=== PATIENT | female | born 1990 | race Caucasian/White ===

== ENCOUNTER 2024-08-11 19:46 | Emergency (ER) | payer SELFPAY ==
--- NOTE | 2024-08-11 19:57 | ED.GENADULT ---
HPI - General Adult General Chief complaint: Psychiatric Symptoms <Avery Galvan MD - Last Filed: 08/12/24 05:50> Stated complaint: etoh, SI statement, invol <Avery Galvan MD - Last Filed: 08/12/24 05:50> Time Seen by Provider: 08/11/24 19:52 <Avery Galvan MD - Last Filed: 08/12/24 05:50> History of Present Illness HPI narrative: patient 33-year-old female who presents emergency department with chief complaint of mental health evaluation. Patient was pulled over by police for driving while intoxicated and during the booking phase the patient stated that she wanted to and reported that she wanted one of the officers shoot her in the face. the patient currently states that she has no complaints <Avery Galvan MD - Last Filed: 08/12/24 05:50> Related Data Home medications: Home Medications Medication Instructions Recorded Confirmed cariprazine 3 mg capsule (Vraylar) 3 mg PO DAILY 07/24/22 05/28/24 escitalopram oxalate 10 mg tablet 10 mg PO DAILY 07/24/22 05/28/24 lithium carbonate 450 mg 450 mg PO DAILY 07/24/22 05/28/24 tablet,extended release quetiapine 100 mg tablet 100 mg PO QHS 07/24/22 05/28/24 <Avery Galvan MD - Last Filed: 08/12/24 05:50> Allergies/adverse reactions: Allergies Allergy/AdvReac Type Severity Reaction Status Date / Time No Known Allergies Allergy Verified 08/11/24 19:47 <Avery Galvan MD - Last Filed: 08/12/24 05:50> Review of Systems Review of Systems: A 10 system review of systems was completed on the patient and is negative except for what is stated in the HPI. Nursing and ancillary documentation was reviewed. <Avery Galvan MD - Last Filed: 08/12/24 05:50> PMFSH Past Medical History Medical History: Medical History Depression with anxiety Encounter for general adult medical examination without abnormal findings <Avery Galvan MD - Last Filed: 08/12/24 05:50> Family History Family History: Family History Father Alcoholism Hypertension Depression Mother Hypertension Depression <Avery Galvan MD - Last Filed: 08/12/24 05:50> Social History Social History: Social History Social History: Single Smoking status: Never smoker Second hand tobacco smoke exposure: No Alcohol intake: current Drinks per week: 6 Substance use: never Substance use type: prescription drug Do You Feel Safe in your Home?: Yes Lack of Transportation: No Lack of Food: Never True Current Housing: I Have Housing Concerned About Future Housing: No Difficulty Paying Gas/Electric Bills: No Difficulty Paying for Meds: No Currently Unemployed: No Education: Don't Know Difficulty w/ Childcare or Family Care: No Living arrangements: with family Occupation/Education: occupation Gender identity (if verbalized by the patient): Female Sexual Orientation (if Verbalized by the Patient): Straight or Heterosexual <Avery Galvan MD - Last Filed: 08/12/24 05:50> Exam Narrative: GENERAL: Well-appearing, well-nourished, and in no acute distress. HEAD: Normocephalic, atraumatic. EYES: PERRLA and EOMI. ENT: Nares clear, no rhinorrhea or epistaxis. Mucous membranes moist. NECK: Supple. CHEST: Clear to auscultation. No respiratory distress. HEART: Regular rate and rhythm. No murmur heard. Normal peripheral pulses. ABDOMEN: Soft, nontender, nondistended, normal active bowel sounds. EXTREMITIES: Normal range of motion. No edema. SKIN: Warm, dry, no rash. NEURO: No focal deficits. Alert and oriented x3. PSYCH: Normal mood and affect. <Avery Galvan MD - Last Filed: 08/12/24 05:50> Course Course Emergency Course: ABNER: patient signed out pending crisis evaluation. Now the patient is sober she no longer wants to kill herself. Patient discharged with resources and return precautions. <Randolph Fofana MD - Last Filed: 08/12/24 07:55> Vital Signs Vital signs: Vital Signs Temperature 98 F 08/11/24 20:15 Pulse Rate 108 H 08/11/24 20:15 Respiratory Rate 15 08/11/24 20:15 Blood Pressure 127/83 08/11/24 20:15 Pulse Oximetry 98 08/11/24 20:15 Temperature 98 F 08/11/24 20:15 Pulse Rate 108 H 08/11/24 20:15 Respiratory Rate 15 08/11/24 20:15 Blood Pressure 127/83 08/11/24 20:15 Pulse Oximetry 98 08/11/24 20:15 <Avery Galvan MD - Last Filed: 08/12/24 05:50> Vital Signs Temperature 98 F 08/11/24 20:15 Pulse Rate 108 H 08/11/24 20:15 Respiratory Rate 15 08/11/24 20:15 Blood Pressure 127/83 08/11/24 20:15 Pulse Oximetry 98 08/11/24 20:15 Temperature 98 F 08/11/24 20:15 Pulse Rate 108 H 08/11/24 20:15 Respiratory Rate 15 08/11/24 20:15 Blood Pressure 127/83 08/11/24 20:15 Pulse Oximetry 98 08/11/24 20:15 <Randolph Fofana MD - Last Filed: 08/12/24 07:55> Medical Decision Making MDM Narrative Medical decision making narrative: Differential diagnosis includes substance induced mood disorder alcohol intoxication, suicidal ideation Initial blood alcohol level was elevated at 294 patient has been allowed to metabolize the alcohol and now the blood alcohol level is below 80. The patient's lithium level was slightly elevated the patient's lithium was held today and should be held for several days until a repeat lithium level The patient is medically clear for psychiatric evaluation referral transferred admission <Avery Galvan MD - Last Filed: 08/12/24 05:50> Vital Signs Vital Signs: Vital Signs Temperature 98 F 08/11/24 20:15 Pulse Rate 108 H 08/11/24 20:15 Respiratory Rate 15 08/11/24 20:15 Blood Pressure 127/83 08/11/24 20:15 Pulse Oximetry 98 08/11/24 20:15 Temperature 98 F 08/11/24 20:15 Pulse Rate 108 H 08/11/24 20:15 Respiratory Rate 15 08/11/24 20:15 Blood Pressure 127/83 08/11/24 20:15 Pulse Oximetry 98 08/11/24 20:15 <Avery Galvan MD - Last Filed: 08/12/24 05:50> Vital Signs Temperature 98 F 08/11/24 20:15 Pulse Rate 108 H 08/11/24 20:15 Respiratory Rate 15 08/11/24 20:15 Blood Pressure 127/83 08/11/24 20:15 Pulse Oximetry 98 08/11/24 20:15 Temperature 98 F 08/11/24 20:15 Pulse Rate 108 H 08/11/24 20:15 Respiratory Rate 15 08/11/24 20:15 Blood Pressure 127/83 08/11/24 20:15 Pulse Oximetry 98 08/11/24 20:15 <Randolph Fofana MD - Last Filed: 08/12/24 07:55> Lab Data Result diagrams: 08/11/24 20:10 08/11/24 20:10 <Avery Galvan MD - Last Filed: 08/12/24 05:50> Labs: Lab Results 08/11/24 08/11/24 08/11/24 Range/Units 20:10 20:42 21:01 WBC 7.6 (4.5-10.0) K/mm3 RBC 4.03 L (4.2-5.4) M/mm3 Hgb 13.2 (12.0-15.0) g/dL Hct 38.3 (37.0-47.0) % MCV 95.0 (80-100) fl MCH 32.8 (26-34) pg MCHC 34.5 (32-36) g/dl RDW 11.5 (11.5-14.5) % Plt Count 278 (150-375) k/mm3 MPV 10.3 (7.4-10.4) fl Immature Gran % (Auto) 0.3 (0-0.5) % Neut % (Auto) 51.6 (45.5-73.1) % Lymph % (Auto) 39.6 (18.3-44.2) % [place] % (Auto) 6.6 (2.6-8.5) % Eos % (Auto) 1.4 (0-4.4) % Baso % (Auto) 0.5 (0.2-1.2) % Lymph # (Auto) 3.02 (0.9-3.2) K/mm3 [place] # (Auto) 0.5 (0.1-0.6) K/mm3 Eos # (Auto) 0.1 (0-0.3) K/mm3 Baso # (Auto) 0.0 (0.0-0.1) K/mm3 Abs Immat Gran (auto) 0.02 (0.00-0.031) K/mm3 Absolute Neuts (auto) 3.9 (1.3-6.7) K/mm3 Absolute Nucleated RBC 0.000 (0.0-0.012) K/mm3 Nucleated RBC % 0.0 (0.0-0.2) % Sodium 138 (137-145) mmol/L Potassium 3.8 (3.4-5.0) mmol/L Chloride 105 (98-107) mmol/L Carbon Dioxide 23 (22-30) mmol/L Anion Gap 10 (4-12) mmol/L BUN 12 (7-17) mg/dL Creatinine 0.80 (0.7-1.0) mg/dL Estim Creat Clear Calc 101 ml/min Estimated GFR > 60 (59 - ) Glucose 108 (65-110) mg/dL Calcium 8.7 (8.4-10.2) mg/dL Total Bilirubin 0.3 (0.2-1.3) mg/dL AST 34 (14-36) U/L ALT 17 (6-35) U/L Alkaline Phosphatase 84 (38-126) U/L Total Protein 8.0 (6.3-8.2) g/dL Albumin 4.6 (3.5-5.1) g/dL TSH (Reflex) 2.600 (0.465-4.68) uIU/mL Urine Color Yellow (Yellow) Urine Appearance Cloudy H (Clear) Urine pH 6.5 (5.0-9.0) Ur Specific [place] 1.003 (1.001-1.035) Urine Protein Negative (Negative) mg/dL Urine Glucose (UA) Negative (Negative) mg/dL Urine Ketones Negative (Negative) mg/dL Ur Blood (Man) Negative (Negative) Urine Nitrate Negative (Negative) Urine Bilirubin Negative (Negative) Urine Urobilinogen 0.2 (<2.0) mg/dL Add Ur Microanalysis Reviewed Leukocyte Esterase Rfl Negative (Negative) TASNEEM/UL Urine RBC 0-2 (0-2) /hpf Urine WBC 0-5 (0-3) /hpf Ur Squamous Epith Cells None seen (Few) /hpf Urine Bacteria None seen /hpf Urine Casts 0-2 POC Urine HCG, Qual Negative (Negative) Urine Opiates Screen Negative (Negative) Urine Methadone Screen Negative (Negative) Ur Barbiturates Screen Negative (Negative) Ur Phencyclidine Scrn Negative (Negative) Ur Amphetamine Screen Negative (Negative) U Benzodiazepines Scrn Negative (Negative) [place] 1.5 H* (0.6-1.2) mmol/L Urine Cocaine Screen Negative (Negative) U Cannabinoids Screen Negative (Negative) Ethyl Alcohol 294 (<10) mg/dL Influenza A (RT-PCR) Negative (Negative) Influenza B (RT-PCR) Negative (Negative) RSV (RT-PCR) Negative (Negative) SARS-CoV-2 RNA (RT-PCR) Negative (Negative) 08/12/24 Range/Units 05:12 WBC (4.5-10.0) K/mm3 RBC (4.2-5.4) M/mm3 Hgb (12.0-15.0) g/dL Hct (37.0-47.0) % MCV (80-100) fl MCH (26-34) pg MCHC (32-36) g/dl RDW (11.5-14.5) % Plt Count (150-375) k/mm3 MPV (7.4-10.4) fl Immature Gran % (Auto) (0-0.5) % Neut % (Auto) (45.5-73.1) % Lymph % (Auto) (18.3-44.2) % [place] % (Auto) (2.6-8.5) % Eos % (Auto) (0-4.4) % Baso % (Auto) (0.2-1.2) % Lymph # (Auto) (0.9-3.2) K/mm3 [place] # (Auto) (0.1-0.6) K/mm3 Eos # (Auto) (0-0.3) K/mm3 Baso # (Auto) (0.0-0.1) K/mm3 Abs Immat Gran (auto) (0.00-0.031) K/mm3 Absolute Neuts (auto) (1.3-6.7) K/mm3 Absolute Nucleated RBC (0.0-0.012) K/mm3 Nucleated RBC % (0.0-0.2) % Sodium (137-145) mmol/L Potassium (3.4-5.0) mmol/L Chloride (98-107) mmol/L Carbon Dioxide (22-30) mmol/L Anion Gap (4-12) mmol/L BUN (7-17) mg/dL Creatinine (0.7-1.0) mg/dL Estim Creat Clear Calc ml/min Estimated GFR (59 - ) Glucose (65-110) mg/dL Calcium (8.4-10.2) mg/dL Total Bilirubin (0.2-1.3) mg/dL AST (14-36) U/L ALT (6-35) U/L Alkaline Phosphatase (38-126) U/L Total Protein (6.3-8.2) g/dL Albumin (3.5-5.1) g/dL TSH (Reflex) (0.465-4.68) uIU/mL Urine Color (Yellow) Urine Appearance (Clear) Urine pH (5.0-9.0) Ur Specific [place] (1.001-1.035) Urine Protein (Negative) mg/dL Urine Glucose (UA) (Negative) mg/dL Urine Ketones (Negative) mg/dL Ur Blood (Man) (Negative) Urine Nitrate (Negative) Urine Bilirubin (Negative) Urine Urobilinogen (<2.0) mg/dL Add Ur Microanalysis Leukocyte Esterase Rfl (Negative) TASNEEM/UL Urine RBC (0-2) /hpf Urine WBC (0-3) /hpf Ur Squamous Epith Cells (Few) /hpf Urine Bacteria /hpf Urine Casts POC Urine HCG, Qual (Negative) Urine Opiates Screen (Negative) Urine Methadone Screen (Negative) Ur Barbiturates Screen (Negative) Ur Phencyclidine Scrn (Negative) Ur Amphetamine Screen (Negative) U Benzodiazepines Scrn (Negative) [place] (0.6-1.2) mmol/L Urine Cocaine Screen (Negative) U Cannabinoids Screen (Negative) Ethyl Alcohol 75 (<10) mg/dL Influenza A (RT-PCR) (Negative) Influenza B (RT-PCR) (Negative) RSV (RT-PCR) (Negative) SARS-CoV-2 RNA (RT-PCR) (Negative) <Avery Galvan MD - Last Filed: 08/12/24 05:50> Lab Results 08/11/24 08/11/24 08/11/24 Range/Units 20:10 20:42 21:01 WBC 7.6 (4.5-10.0) K/mm3 RBC 4.03 L (4.2-5.4) M/mm3 Hgb 13.2 (12.0-15.0) g/dL Hct 38.3 (37.0-47.0) % MCV 95.0 (80-100) fl MCH 32.8 (26-34) pg MCHC 34.5 (32-36) g/dl RDW 11.5 (11.5-14.5) % Plt Count 278 (150-375) k/mm3 MPV 10.3 (7.4-10.4) fl Immature Gran % (Auto) 0.3 (0-0.5) % Neut % (Auto) 51.6 (45.5-73.1) % Lymph % (Auto) 39.6 (18.3-44.2) % [place] % (Auto) 6.6 (2.6-8.5) % Eos % (Auto) 1.4 (0-4.4) % Baso % (Auto) 0.5 (0.2-1.2) % Lymph # (Auto) 3.02 (0.9-3.2) K/mm3 [place] # (Auto) 0.5 (0.1-0.6) K/mm3 Eos # (Auto) 0.1 (0-0.3) K/mm3 Baso # (Auto) 0.0 (0.0-0.1) K/mm3 Abs Immat Gran (auto) 0.02 (0.00-0.031) K/mm3 Absolute Neuts (auto) 3.9 (1.3-6.7) K/mm3 Absolute Nucleated RBC 0.000 (0.0-0.012) K/mm3 Nucleated RBC % 0.0 (0.0-0.2) % Sodium 138 (137-145) mmol/L Potassium 3.8 (3.4-5.0) mmol/L Chloride 105 (98-107) mmol/L Carbon Dioxide 23 (22-30) mmol/L Anion Gap 10 (4-12) mmol/L BUN 12 (7-17) mg/dL Creatinine 0.80 (0.7-1.0) mg/dL Estim Creat Clear Calc 101 ml/min Estimated GFR > 60 (59 - ) Glucose 108 (65-110) mg/dL Calcium 8.7 (8.4-10.2) mg/dL Total Bilirubin 0.3 (0.2-1.3) mg/dL AST 34 (14-36) U/L ALT 17 (6-35) U/L Alkaline Phosphatase 84 (38-126) U/L Total Protein 8.0 (6.3-8.2) g/dL Albumin 4.6 (3.5-5.1) g/dL TSH (Reflex) 2.600 (0.465-4.68) uIU/mL Urine Color Yellow (Yellow) Urine Appearance Cloudy H (Clear) Urine pH 6.5 (5.0-9.0) Ur Specific [place] 1.003 (1.001-1.035) Urine Protein Negative (Negative) mg/dL Urine Glucose (UA) Negative (Negative) mg/dL Urine Ketones Negative (Negative) mg/dL Ur Blood (Man) Negative (Negative) Urine Nitrate Negative (Negative) Urine Bilirubin Negative (Negative) Urine Urobilinogen 0.2 (<2.0) mg/dL Add Ur Microanalysis Reviewed Leukocyte Esterase Rfl Negative (Negative) TASNEEM/UL Urine RBC 0-2 (0-2) /hpf Urine WBC 0-5 (0-3) /hpf Ur Squamous Epith Cells None seen (Few) /hpf Urine Bacteria None seen /hpf Urine Casts 0-2 POC Urine HCG, Qual Negative (Negative) Urine Opiates Screen Negative (Negative) Urine Methadone Screen Negative (Negative) Ur Barbiturates Screen Negative (Negative) Ur Phencyclidine Scrn Negative (Negative) Ur Amphetamine Screen Negative (Negative) U Benzodiazepines Scrn Negative (Negative) [place] 1.5 H* (0.6-1.2) mmol/L Urine Cocaine Screen Negative (Negative) U Cannabinoids Screen Negative (Negative) Ethyl Alcohol 294 (<10) mg/dL Influenza A (RT-PCR) Negative (Negative) Influenza B (RT-PCR) Negative (Negative) RSV (RT-PCR) Negative (Negative) SARS-CoV-2 RNA (RT-PCR) Negative (Negative) 08/12/24 Range/Units 05:12 WBC (4.5-10.0) K/mm3 RBC (4.2-5.4) M/mm3 Hgb (12.0-15.0) g/dL Hct (37.0-47.0) % MCV (80-100) fl MCH (26-34) pg MCHC (32-36) g/dl RDW (11.5-14.5) % Plt Count (150-375) k/mm3 MPV (7.4-10.4) fl Immature Gran % (Auto) (0-0.5) % Neut % (Auto) (45.5-73.1) % Lymph % (Auto) (18.3-44.2) % [place] % (Auto) (2.6-8.5) % Eos % (Auto) (0-4.4) % Baso % (Auto) (0.2-1.2) % Lymph # (Auto) (0.9-3.2) K/mm3 [place] # (Auto) (0.1-0.6) K/mm3 Eos # (Auto) (0-0.3) K/mm3 Baso # (Auto) (0.0-0.1) K/mm3 Abs Immat Gran (auto) (0.00-0.031) K/mm3 Absolute Neuts (auto) (1.3-6.7) K/mm3 Absolute Nucleated RBC (0.0-0.012) K/mm3 Nucleated RBC % (0.0-0.2) % Sodium (137-145) mmol/L Potassium (3.4-5.0) mmol/L Chloride (98-107) mmol/L Carbon Dioxide (22-30) mmol/L Anion Gap (4-12) mmol/L BUN (7-17) mg/dL Creatinine (0.7-1.0) mg/dL Estim Creat Clear Calc ml/min Estimated GFR (59 - ) Glucose (65-110) mg/dL Calcium (8.4-10.2) mg/dL Total Bilirubin (0.2-1.3) mg/dL AST (14-36) U/L ALT (6-35) U/L Alkaline Phosphatase (38-126) U/L Total Protein (6.3-8.2) g/dL Albumin (3.5-5.1) g/dL TSH (Reflex) (0.465-4.68) uIU/mL Urine Color (Yellow) Urine Appearance (Clear) Urine pH (5.0-9.0) Ur Specific [place] (1.001-1.035) Urine Protein (Negative) mg/dL Urine Glucose (UA) (Negative) mg/dL Urine Ketones (Negative) mg/dL Ur Blood (Man) (Negative) Urine Nitrate (Negative) Urine Bilirubin (Negative) Urine Urobilinogen (<2.0) mg/dL Add Ur Microanalysis Leukocyte Esterase Rfl (Negative) TASNEEM/UL Urine RBC (0-2) /hpf Urine WBC (0-3) /hpf Ur Squamous Epith Cells (Few) /hpf Urine Bacteria /hpf Urine Casts POC Urine HCG, Qual (Negative) Urine Opiates Screen (Negative) Urine Methadone Screen (Negative) Ur Barbiturates Screen (Negative) Ur Phencyclidine Scrn (Negative) Ur Amphetamine Screen (Negative) U Benzodiazepines Scrn (Negative) [place] (0.6-1.2) mmol/L Urine Cocaine Screen (Negative) U Cannabinoids Screen (Negative) Ethyl Alcohol 75 (<10) mg/dL Influenza A (RT-PCR) (Negative) Influenza B (RT-PCR) (Negative) RSV (RT-PCR) (Negative) SARS-CoV-2 RNA (RT-PCR) (Negative) <Randolph Ffoana MD - Last Filed: 08/12/24 07:55> Restraint Face to Face Eval ED Evaluation Findings Pt's immediate situation:: Patient intoxicated uncooperative attempting to run out of the ER <Avery Galvan MD - Last Filed: 08/12/24 05:50> Pt's reaction to intervention:: Have attempted to use security to facilitate patient's stay in the room patient noncompliant <Avery Galvan MD - Last Filed: 08/12/24 05:50> Pt's med/behavioral condition:: Patient expressing suicidal ideation while intoxicated <Avery Galvan MD - Last Filed: 08/12/24 05:50> Discharge Plan Discharge Clinical Impression: Suicidal ideation, Elevated lithium level, Alcohol intoxication <Avery Galvan MD - Last Filed: 08/12/24 05:50> Patient Disposition: Home, Self-Care <Avery Galvan MD - Last Filed: 08/12/24 05:50> Condition: Stable <Avery Galvan MD - Last Filed: 08/12/24 05:50> Instructions: Antibiotic Form <Avery Galvan MD - Last Filed: 08/12/24 05:50> Additional Instructions: Please follow-up the resources provided by the crisis team. please follow-up your primary care physician for management of your lithium which was slightly elevated today. Return to the ED if you develop thoughts harming self or others or you develop other symptoms that he would like to be evaluated. <Avery Galvan MD - Last Filed: 08/12/24 05:50> Prescriptions: No Action lithium carbonate 450 mg tablet extended release 450 mg PO DAILY Vraylar 3 mg capsule 3 mg PO DAILY quetiapine 100 mg tablet 100 mg PO QHS escitalopram oxalate 10 mg tablet 10 mg PO DAILY levonorgestrel-ethinyl estrad [Altavera (28)] 0.15-0.03 mg tablet See Rx Instructions .ROUTE .COMPLEX Qty: 84 0RF Dose Instruction: TAKE 1 TABLET BY MOUTH DAILY, FOLLOWING THE ORDER ON BLISTER CARD Rx Instructions: TAKE 1 TABLET BY MOUTH DAILY, FOLLOWING THE ORDER ON BLISTER CARD <Avery Galvan MD - Last Filed: 08/12/24 05:50> Follow-up/Referrals: Nataly Whalen MD [Primary Care Provider] - <Avery Galvan MD - Last Filed: 08/12/24 05:50>
[2024-08-11 20:15] VITALS: BP 127/83; PULSE 108; RESP 15; TEMP 36.6; O2SAT 98
--- NOTE | 2024-08-11 20:16 | ECG_ITS ---
Test Date: 2024-08-11 20:13:08 Measurements Intervals [place] Rate: 92 P: 61 [place]: 159 QRS: 3 QRSD: 114 T: 31 QT: 375 QTc: 465 Interpretive Statements SINUS RHYTHM POSSIBLE LEFT ATRIAL ENLARGEMENT INCOMPLETE RIGHT BUNDLE BRANCH BLOCK BORDERLINE T WAVE ABNORMALITY- ANTERIOR LEADS BASELINE ARTIFACT- I, II, III, AVR, AVL, AVF, V2 BORDERLINE ECG No previous ECG available for comparison Electronically Signed On 08-12-2024 06:16:33 [facility] [employer] by Randall Grayson D.O.
[2024-08-11 20:26] LABS: Basophils Percent Auto 0.5 % (0.2-1.2); Eosinophils Absolute Auto 0.1 K/mm3 (0-0.3); Eosinophils Percent Auto 1.4 % (0-4.4); Hematocrit 38.3 % (37.0-47.0); Hemoglobin 13.2 g/dL (12.0-15.0); Immature Granulocyte Absolute 0.02 K/mm3 (0.00-0.031); Immature Granulocyte Percent A 0.3 % (0-0.5); Lymphocytes Absolute Auto 3.02 K/mm3 (0.9-3.2); Lymphocytes Percent Auto 39.6 % (18.3-44.2); Mean Corpuscular HGB Conc 34.5 g/dl (32-36); Mean Corpuscular Hemoglobin 32.8 pg (26-34); Mean Platelet Volume 10.3 fl (7.4-10.4); Monocytes Absolute Auto 0.5 K/mm3 (0.1-0.6); Monocytes Percent Auto 6.6 % (2.6-8.5); Neutrophils Absolute Auto 3.9 K/mm3 (1.3-6.7); Neutrophils Percent Auto 51.6 % (45.5-73.1); Platelet Count Result 278 k/mm3 (150-375); Red Blood Count 4.03 M/mm3 (4.2-5.4); Red Cell Distribution Width 11.5 % (11.5-14.5); White Blood Count 7.6 K/mm3 (4.5-10.0)
[2024-08-11 20:37] LABS: Alanine Aminotransferase 17 U/L (6-35); Albumin Level 4.6 g/dL (3.5-5.1); Alkaline Phosphatase 84 U/L (38-126); Anion Gap 10 mmol/L (4-12); Aspartate Amino Transferase 34 U/L (14-36); Bilirubin,Total 0.3 mg/dL (0.2-1.3); Blood Urea Nitrogen 12 mg/dL (7-17); Calcium 8.7 mg/dL (8.4-10.2); Carbon Dioxide 23 mmol/L (22-30); Chloride 105 mmol/L (98-107); Estimated CRCL calculation 101 ml/min; Estimated Glomerular Filt Rate > 60; Glucose 108 mg/dL (65-110); Potassium 3.8 mmol/L (3.4-5.0); Sodium 138 mmol/L (137-145)
[2024-08-11 21:00] LABS: Add Urine Microscopic? YES; Appearance Urine Cloudy (Clear); Bacteria Urine None Seen /hpf; Bilirubin Urine Negative (Negative); Blood Urine Negative (Negative); Color Urine Yellow (Yellow); Glucose Urine UA Negative (Negative); Ketones Urine Negative (Negative); Leukocyte Esterase Ur Negative LEU/UL (Negative); Need Manual Microscopic Reviewed; Nitrate Urine Negative (Negative); Non Pathogenic Casts 0-2; Protein Urine Negative (Negative); RBC Urine 0-2 /hpf (0-2); Specific Grav Ur 1.003 (1.001-1.035); Squamous Epithelial Cell Urine None Seen /hpf (Few); Urobilinogen Urine 0.2 mg/dL (<2.0); WBC Urine 0-5 /hpf (0-3); pH Urine 6.5 (5.0-9.0)
[2024-08-11 21:03] LABS: BEDSIDEPREGUCG Negative (Negative)
[2024-08-11 21:19] LABS: Influenza A QL RT-PCR Negative (Negative); Influenza B QL RT-PCR Negative (Negative); RSV RNA, RT-PCR Negative (Negative); SARS-CoV-2 RNA PCR Negative (Negative)
[2024-08-11 21:21] LABS: Amphetamine Screen Urine Negative (Negative); Barbiturate Screen Urine Negative (Negative); Benzodiazepines Screen Urine Negative (Negative); Cannabinoid Screen Urine Negative (Negative); Cocaine Screen Urine Negative (Negative); Methadone Screen Urine Negative (Negative); Opiate Screen Urine Negative (Negative); Phencyclidine Screen Urine Negative (Negative)
[2024-08-11 21:36] LABS: Ethanol 294 mg/dL (<10)
[2024-08-11 22:37] LABS: Lithium 1.5 mmol/L (0.6-1.2)
--- NOTE | 2024-08-11 23:06 | PC.NURSE ---
Pt is in room sleeping. Quetiapine is being held at this time per Dr. Galvan.
[2024-08-12] MEDS: QUEtiapine FUMARATE 100 MG TABLET 300 MG PO (01:18)
[2024-08-12 05:32] LABS: Ethanol 75 mg/dL (<10)
--- NOTE | 2024-08-12 05:53 | PC.NURSE ---
2100 Pt tried to run out EMS bay but was caught and directed back to room 15 by security. This RN spoke with pt and she agreed to not try to escape.
[2024-08-12 09:19] VITALS: BP 130/84; PULSE 79; RESP 18; TEMP 36.9; O2SAT 97
== END 2024-08-12 09:20 | disposition home or self-care (01) ==
PROVIDERS: Emergency Provider Emergency Medicine; PCP Family Medicine
DX: R45.851 Suicidal ideations (principal); F10.129 Alcohol abuse with intoxication, unspecified; Y90.8 Blood alcohol level of 240 mg/100 ml or more; R78.89 Finding of other specified substances, not normally found in blood; Z11.52 Encounter for screening for COVID-19; F41.8 Other specified anxiety disorders; Z79.899 Other long term (current) drug therapy
CPT/HCPCS: 36415; 80053; 80178; 80307; 81001; 81025; 82077; 84443; 85025; 87637; 93005; 99284; A9270

== ENCOUNTER 2024-09-27 12:54 | Emergency (ER) | payer OTHER, SELFPAY ==
--- NOTE | ~2024-09-27 | XR_ITS ---
CHEST RADIOGRAPH, PA AND LATERAL CLINICAL HISTORY: COUGH, N/V/D SINCE 09-22-24 . COMPARISON: None available TECHNIQUE: PA and lateral views of the chest. FINDINGS The cardiomediastinal silhouette is unremarkable. Right lower lobe infiltrate. The remainder of the lungs are clear. IMPRESSION: Right lower lobe infiltrate Reviewed, dictated and finalized at location A. INGS TIGHTENER IMPRESSION: Right lower lobe infiltrate
[2024-09-27 13:03] VITALS: BP 117/78; PULSE 120; RESP 18; TEMP 37.7; O2SAT 95
--- NOTE | 2024-09-27 15:01 | ED.URI ---
HPI - URI/Sore Throat General Chief Complaint: Upper Respiratory Infection Stated Complaint: cough, nausea, body aches, 92% on RA Time Seen by Provider: 09/27/24 14:52 Source: patient Mode of arrival: ambulatory Limitations: no limitations History of Present Illness HPI Narrative: Patient presents with complaint cough, nausea, vomiting, and diarrhea as well as body aches. She states her last oral intake was a few sips of broth yesterday. She has no underlying respiratory conditions. Her emesis has been nonbloody has as her diarrhea. She has a productive cough. She states that she developed a slight sore throat but only after coughing. She has been taking ibuprofen for headache as well as NyQuil and DayQuil. Patient's symptoms started on 09/22/2024. Patient was seen in urgent care and states she was prescribed medications that she started taking on 09/24/2024. She notes that this included benzonatate, albuterol inhaler, and she believes another medication that might have started with a DD although she is not certain. She believes that 1 of these medications might of been an antibiotic but she does not know and does not have a list. She is starting to feel short of breath. Her last menstrual period is unknown as she is on oral contraception. She was tested for COVID and flu when she 1st presented to urgent care and was negative at that time. She had a possible exposure to COVID in the lot of her work colleagues had this a few weeks ago. Patient presented to urgent care again today and she received a nebulized treatment and was advised to come to the emergency department because she was saturating 92% on room air. . Related Data Home Medications ?Medication ?Instructions ?Recorded ?Confirmed ?Last Taken ?Type cariprazine 3 mg capsule (Vraylar) 3 mg PO DAILY 07/24/22 05/28/24 Unknown History escitalopram oxalate 10 mg tablet 10 mg PO DAILY 07/24/22 05/28/24 Unknown History lithium carbonate 450 mg 450 mg PO DAILY 07/24/22 05/28/24 Unknown History tablet,extended release quetiapine 100 mg tablet 100 mg PO QHS 07/24/22 05/28/24 Unknown History Allergies Allergy/AdvReac Type Severity Reaction Status Date / Time No Known Allergies Allergy Verified 09/27/24 14:57 [facility] Past Medical History Medical History Depression with anxiety Family History Family History Father Alcoholism Hypertension Depression Mother Hypertension Depression Social History Social History Social History: Single Smoking status: Never smoker Second hand tobacco smoke exposure: No Alcohol intake: current Drinks per week: 6 Substance use: never Substance use type: prescription drug Do You Feel Safe in your Home?: Yes Lack of Transportation: No Lack of Food: Never True Current Housing: I Have Housing Concerned About Future Housing: No Difficulty Paying Gas/Electric Bills: No Difficulty Paying for Meds: No Currently Unemployed: No Education: Don't Know Difficulty w/ Childcare or Family Care: No Living arrangements: with family Occupation/Education: occupation Gender identity (if verbalized by the patient): Female Sexual Orientation (if Verbalized by the Patient): Straight or Heterosexual Exam Narrative: GENERAL: well-nourished, appears acutely ill though nontoxic HEAD: Normocephalic, atraumatic. EYES: Non injected, non icteric ENT: Nares clear, no rhinorrhea or epistaxis. NECK: Supple. CHEST: Speaking in full sentences. No respiratory distress. Lungs clear to auscultation without wheezes, crackles, or stridor. HEART: Tachycardic rate and rhythm. . ABDOMEN: Soft, nondistended. EXTREMITIES: Normal range of motion. No lower extremity edema. SKIN: Warm, dry, no rash. NEURO: No focal deficits. Alert and oriented x3. PSYCH: Normal mood and affect. Course Vital Signs Vital signs: Vital Signs Temperature 100 F H 09/27/24 13:03 Pulse Rate 120 H 09/27/24 13:03 Respiratory Rate 18 09/27/24 13:03 Blood Pressure 117/78 09/27/24 13:03 Pulse Oximetry 95 09/27/24 13:03 Oxygen Delivery Room Air 09/27/24 13:03 Temperature 98.2 F 09/27/24 18:17 Pulse Rate 78 09/27/24 17:05 Respiratory Rate 19 09/27/24 17:05 Blood Pressure 119/78 09/27/24 17:05 Pulse Oximetry 94 09/27/24 17:05 Oxygen Delivery Room Air 09/27/24 13:03 MDM - URI/Sore Throat MDM Narrative Medical decision making narrative: Patient presents with multiple complaints including cough, nausea, vomiting, diarrhea, myalgias and headache. In the emergency department she is borderline febrile and tachycardic. 0 points Centor Score so will not test for Strep. Will give acetaminophen given temperature and a L of IV fluids given tachycardia. Will give 1 time dose of intramuscular Solu-Medrol. Patient states she thinks she was put on antibiotics although does not know the name. She states that she is taken benzonatate as well as an albuterol inhaler. Believes there might have been another drug that started with the letter D. this is hard to know whether she was prescribed dextromethorphan versus doxycycline or an alternative medication entirely. Her pharmacy is the [facility] in [facility] on [facility] which is closed at this time and unable to see any recent fills on online home meds tab. [facility] in [place] is called: They Confirm patient was prescribed benzonatate and albuterol inhaler as well as cefdinir antibiotic was prescribed. Patient has evidence of a pneumonia on chest x-ray. CURB-65 score Confusion (No 0, Yes +1): 0 BUN >19mg/dl (No 0, Yes +1) 0 RR >/= 30 (No 0, Yes +1) 0 SBP <90mmHg or DBP </=60mmHg (No 0, Yes +1): 0 Age >/=65 (No 0, Yes +1): 0 Result = 0 points, low risk group. Suitable for outpatient treatment. DRIP Score - predicts risk for CAP d/t drug-resistant pathogens Antibiotic use within 60 days (No 0, Yes +2): 2 intermediate school teacher care resident (No 0, Yes +2): 0 Tube feeding (No 0, Yes +2): 0 Prior drug-resistant pneumonia Dx within 1 year (No 0, Yes +2): 0 Hospitalization within 60 days (No 0, Yes +1): 0 Chronic pulmonary disease (No 0, Yes +1): 0 Poor functional status (No 0, Yes +1): 0 H2 edmond or PPI within 14 days (No 0, Yes +1): 0 Active wound care at time of admission (No 0, Yes +1):0 MRSA colonization within 1 year (No 0, Yes +1):0 Total:2 Outpatient score <4 with recent antibiotic exposure, will prescribe beta-lactam (high-dose extended-release amox/clavulante). Patient given 1st dose in the emergency department. The rest of the course as prescribed along with the ondansetron/Zofran. Normocytic anemia and thrombocytopenia (but neither marked enough to suggest TTP). test negative. She is hyponatremic. Legionella antigen ordered but will not result same day and lower suspicion for this given not having bradycardia/relative bradycardia. She is also hypokalemic. Magnesium ordered and repletion of potassium was ordered. Magnesium normal. Patient's temperature has improved as has the heart rate and she has successfully PO challenged. Advised follow-up with primary care physician. Provided name/contact information for referral if she requires 1. Given ED return precautions. Differential Diagnosis Differential diagnosis: Likely upper respiratory infection, viral infection, bronchitis, influenza, pharyngitis and other (Pneumonia) Lab Data Attestation: I reviewed the patient's lab results. 09/27/24 16:35 09/27/24 16:35 Labs: Lab Results 09/27/24 09/27/24 09/27/24 Range/Units 15:23 16:24 16:35 WBC 5.8 (4.5-10.0) K/mm3 RBC 3.64 L (4.2-5.4) M/mm3 Hgb 11.5 L (12.0-15.0) g/dL Hct 33.2 L (37.0-47.0) % MCV 91.2 (80-100) fl MCH 31.6 (26-34) pg MCHC 34.6 (32-36) g/dl RDW 12.0 (11.5-14.5) % Plt Count 145 L (150-375) k/mm3 MPV 11.6 H (7.4-10.4) fl Immature Gran % (Auto) 0.3 (0-0.5) % Neut % (Auto) 77.1 H (45.5-73.1) % Lymph % (Auto) 14.1 L (18.3-44.2) % [place] % (Auto) 8.2 (2.6-8.5) % Eos % (Auto) 0.0 (0-4.4) % Baso % (Auto) 0.3 (0.2-1.2) % Lymph # (Auto) 0.81 L (0.9-3.2) K/mm3 [place] # (Auto) 0.5 (0.1-0.6) K/mm3 Eos # (Auto) 0.0 (0-0.3) K/mm3 Baso # (Auto) 0.0 (0.0-0.1) K/mm3 Abs Immat Gran (auto) 0.02 (0.00-0.031) K/mm3 Absolute Neuts (auto) 4.4 (1.3-6.7) K/mm3 Absolute Nucleated RBC 0.000 (0.0-0.012) K/mm3 Nucleated RBC % 0.0 (0.0-0.2) % Sodium 130 L (137-145) mmol/L Potassium 3.2 L (3.4-5.0) mmol/L Chloride 102 (98-107) mmol/L Carbon Dioxide 20 L (22-30) mmol/L Anion Gap 8 (4-12) mmol/L BUN 10 (7-17) mg/dL Creatinine 0.84 (0.7-1.0) mg/dL Estim Creat Clear Calc 100 ml/min Estimated GFR > 60 (59 - ) Glucose 119 H (65-110) mg/dL Calcium 7.3 L (8.4-10.2) mg/dL Magnesium 1.9 (1.6-2.3) mg/dL POC Urine HCG, Qual Negative (Negative) Influenza A (RT-PCR) Negative (Negative) Influenza B (RT-PCR) Negative (Negative) Ur L.pneumophila Ag RSV (RT-PCR) Negative (Negative) SARS-CoV-2 RNA (RT-PCR) Negative (Negative) 09/27/24 Range/Units 17:13 WBC (4.5-10.0) K/mm3 RBC (4.2-5.4) M/mm3 Hgb (12.0-15.0) g/dL Hct (37.0-47.0) % MCV (80-100) fl MCH (26-34) pg MCHC (32-36) g/dl RDW (11.5-14.5) % Plt Count (150-375) k/mm3 MPV (7.4-10.4) fl Immature Gran % (Auto) (0-0.5) % Neut % (Auto) (45.5-73.1) % Lymph % (Auto) (18.3-44.2) % Sum[place] % (Auto) (2.6-8.5) % Eos % (Auto) (0-4.4) % Baso % (Auto) (0.2-1.2) % Lymph # (Auto) (0.9-3.2) K/mm3 [place] # (Auto) (0.1-0.6) K/mm3 Eos # (Auto) (0-0.3) K/mm3 Baso # (Auto) (0.0-0.1) K/mm3 Abs Immat Gran (auto) (0.00-0.031) K/mm3 Absolute Neuts (auto) (1.3-6.7) K/mm3 Absolute Nucleated RBC (0.0-0.012) K/mm3 Nucleated RBC % (0.0-0.2) % Sodium (137-145) mmol/L Potassium (3.4-5.0) mmol/L Chloride (98-107) mmol/L Carbon Dioxide (22-30) mmol/L Anion Gap (4-12) mmol/L BUN (7-17) mg/dL Creatinine (0.7-1.0) mg/dL Estim Creat Clear Calc ml/min Estimated GFR (59 - ) Glucose (65-110) mg/dL Calcium (8.4-10.2) mg/dL Magnesium (1.6-2.3) mg/dL POC Urine HCG, Qual (Negative) Influenza A (RT-PCR) (Negative) Influenza B (RT-PCR) (Negative) Ur L.pneumophila Ag Pending RSV (RT-PCR) (Negative) SARS-CoV-2 RNA (RT-PCR) (Negative) Imaging Data Attestation: I personally reviewed and interpreted this imaging study as follows: My impression: I do appreciate right lower lobe infiltrate on my independent interpretation of chest x-ray Radiologist's impression: Impressions Chest X-Ray 09/27/24 15:34 IMPRESSION: Right lower lobe infiltrate ECG Data EKG #1: Attestation: I personally reviewed and interpreted this ECG as follows: ECG completion date: 09/27/24 ECG completion time: 18:21 Interpretation: Normal sinus rhythm at a rate of 65 beats per minute. HI interval 154. QRS 104. QT/QTC 428/440. Good R-wave progression across the precordial leads. No T-wave inversions. Normal axis. Discharge Plan Discharge Clinical Impression: Right lower lobe pneumonia, Normocytic anemia, Thrombocytopenia, Hyponatremia, Hypokalemia Patient Disposition: Home, Self-Care Condition: Stable Instructions: Antibiotic Form, Hyponatremia (ED), Hypokalemia (ED), Community Acquired Pneumonia (DC), Anemia (ED), Thrombocytopenia (ED) Additional Instructions: You have evidence of a pneumonia. Take the prescribed antibiotic. You received your 1st dose in the emergency department today. You can also use the oral disintegrating tablets of Zofran/ondansetron for nausea and vomiting. Rest and maintain your hydration. You can supplement your water intake with occasional Gatorade or Pedialyte to maintain your electrolytes. If you are going to drink juice, dilute it. Follow-up with primary care physician. If you do not have 1 the name of the doctors listed below. Return to the emergency department with any new or worsening symptoms. Patient Language: Spanish Prescriptions: New amoxicillin-pot clavulanate 875-125 mg tablet 1 tablet PO Q12H 5 Days Qty: 10 0RF Rx Instructions: start 1/13 AM; received first dose in ED 1/12 PM ondansetron 4 mg tablet,disintegrating 4 mg PO Q8H PRN (Reason: nausea and vomiting) Qty: 7 0RF No Action lithium carbonate 450 mg tablet extended release 450 mg PO DAILY Vraylar 3 mg capsule 3 mg PO DAILY quetiapine 100 mg tablet 100 mg PO QHS escitalopram oxalate 10 mg tablet 10 mg PO DAILY levonorgestrel-ethinyl estrad [Altavera (28)] 0.15-0.03 mg tablet See Rx Instructions .ROUTE .COMPLEX Qty: 84 1RF Dose Instruction: TAKE 1 TABLET BY MOUTH DAILY, FOLLOWING THE ORDER ON BLISTER CARD Rx Instructions: TAKE 1 TABLET BY MOUTH DAILY, FOLLOWING THE ORDER ON BLISTER CARD Follow-up/Referrals: PHYSICIAN,LOOM OPERATOR [Primary Care Provider] - Manuel Lorenzo MD [Physician] - (Family practice/internal medicine) Stand Alone Forms: Work/School Release IP Time of Disposition: 17:54
[2024-09-27] MEDS: ACETAMINOPHEN 500 MG TABLET 1000 MG PO (15:49)
[2024-09-27] MEDS: SODIUM CHLORIDE 0.9% IV 1,000 ML 999 ML IV CONT (15:49)
[2024-09-27] MEDS: methylPREDNISolone SOD SUCC 125 MG VIAL IM (15:50)
[2024-09-27 16:05] LABS: Influenza A QL RT-PCR Negative (Negative); Influenza B QL RT-PCR Negative (Negative); RSV RNA, RT-PCR Negative (Negative); SARS-CoV-2 RNA PCR Negative (Negative)
[2024-09-27 16:25] LABS: BEDSIDEPREGUCG Negative (Negative)
[2024-09-27 16:42] LABS: Basophils Percent Auto 0.3 % (0.2-1.2); Hematocrit 33.2 % (37.0-47.0); Hemoglobin 11.5 g/dL (12.0-15.0); Immature Granulocyte Absolute 0.02 K/mm3 (0.00-0.031); Immature Granulocyte Percent A 0.3 % (0-0.5); Lymphocytes Absolute Auto 0.81 K/mm3 (0.9-3.2); Lymphocytes Percent Auto 14.1 % (18.3-44.2); Mean Corpuscular HGB Conc 34.6 g/dl (32-36); Mean Corpuscular Hemoglobin 31.6 pg (26-34); Mean Corpuscular Volume 91.2 fl (80-100); Mean Platelet Volume 11.6 fl (7.4-10.4); Monocytes Absolute Auto 0.5 K/mm3 (0.1-0.6); Monocytes Percent Auto 8.2 % (2.6-8.5); Neutrophils Absolute Auto 4.4 K/mm3 (1.3-6.7); Neutrophils Percent Auto 77.1 % (45.5-73.1); Platelet Count Result 145 k/mm3 (150-375); Red Blood Count 3.64 M/mm3 (4.2-5.4); White Blood Count 5.8 K/mm3 (4.5-10.0)
[2024-09-27 16:51] LABS: Anion Gap 8 mmol/L (4-12); Blood Urea Nitrogen 10 mg/dL (7-17); Calcium 7.3 mg/dL (8.4-10.2); Carbon Dioxide 20 mmol/L (22-30); Chloride 102 mmol/L (98-107); Estimated CRCL calculation 100 ml/min; Estimated Glomerular Filt Rate > 60; Glucose 119 mg/dL (65-110); Potassium 3.2 mmol/L (3.4-5.0); Sodium 130 mmol/L (137-145)
[2024-09-27] MEDS: AMOXICILLIN/CLAVULANATE K 875-125 MG TAB 1 TABLET PO (17:03)
[2024-09-27] MEDS: POTASSIUM BICARBONATE 25 MEQ TABEF 50 MEQ PO (17:03)
[2024-09-27 17:05] VITALS: BP 119/78; PULSE 78; RESP 19; TEMP 36.8; O2SAT 94
--- NOTE | 2024-09-27 17:05 | ECG_ITS ---
Test Date: 2024-09-27 18:21:03 Measurements Intervals [place] Rate: 65 P: 30 RI: 154 QRS: 70 QRSD: 104 T: 60 QT: 428 QTc: 447 Interpretive Statements SINUS RHYTHM Compared to ECG 08/11/2024 20:13:08 Incomplete right bundle-branch block no longer present Electronically Signed On 09-28-2024 21:55:22 [facility] by Karla Yañez M.D.
[2024-09-27 17:12] LABS: Magnesium 1.9 mg/dL (1.6-2.3)
[2024-09-27 18:17] VITALS: TEMP 36.8
[2024-09-27] MEDS: ONDANSETRON INJ 4 MG/2 ML VIAL IV PUSH (18:20)
[2024-10-01 02:49] LABS: Legionella pneumophila Ag Ur NOT DETECTED
== END 2024-09-27 18:39 | disposition home or self-care (01) ==
PROVIDERS: Emergency Provider Student in an Organized Health Care Education/Training Program
DX: J18.9 Pneumonia, unspecified organism (principal); Z20.822 Contact with and (suspected) exposure to COVID-19; D64.9 Anemia, unspecified; D69.6 Thrombocytopenia, unspecified; E87.1 Hypo-osmolality and hyponatremia; E87.6 Hypokalemia; F41.9 Anxiety disorder, unspecified; Z79.899 Other long term (current) drug therapy
CPT/HCPCS: 36415; 71046; 80048; 81025; 83735; 85025; 87449; 87637; 93005; 96361; 96372; 96374; 99284; A9270; J2405; J2919; J7030

== ENCOUNTER 2025-06-03 18:28 | Emergency (ER) | payer BC, SELFPAY ==
[2025-06-03 18:34] VITALS: BP 150/83; PULSE 88; RESP 18; TEMP 37.1; O2SAT 95
--- OUTSIDE RECORDS SUMMARY | 2025-06-03 18:38 | XMS_ITS | Clinical Summary ---
Author Organization [facility] Address [facility] [place] [address] Care Team Providers Care Tire Curer Name Role Phone None, Provider MD Primary Care Provider Unavaila ble Allergies No known active allergies Medications lithium 150 MG capsule Take 1 capsule (150 mg total) by mouth every morning. 01/31/2024 Active lithium CR (LITHOBID) 300 MG tablet Take 1 tablet (300 mg total) by mouth nightly at bedtime. 02/09/2024 Active escitalopram (LEXAPRO) 20 MG tablet Take 1 tablet (20 mg total) by mouth daily. 01/24/2024 Active ALTAVERA 0.15-30 MG-MCG tablet Take 1 tablet by mouth daily. 01/24/2024 Active QUEtiapine (SEROQUEL) 300 MG tablet Take 1 tablet (300 mg total) by mouth nightly at bedtime. 01/24/2024 Active traZODone (DESYREL) 50 MG tablet Take 1 tablet (50 mg total) by mouth nightly at bedtime. 02/12/2024 Active Immunizations Immunization Administration Dates Next Due Tdap (Boostrix) 02/21/2024 Social History Tobacco Use Types Packs/Day Years Used Date Smoking Tobacco: Never Smokeless Tobacco: Never Tobacco Cessation:Counseling Given: Not Answered Alcohol Use Standard Drinks/Week Comments Not Currently 0 (1 standard drink = 0.6 oz pur e alcohol) Comments No Sex and Gender Information Value Date Recorded Sex Assigned at Not on file Legal Sex Female 4:45 PM CDT Gender Identity Not on file Sexual Orientation Not on file Last Filed Vital Signs Vital Sign Reading Time Taken Comments Blood Pressure 134/88 02/28/2024 10:26 AM CDT Pulse 65 02/28/2024 10:26 AM CDT Temperature 37.1 C (98.7 F) 02/28/2024 10:26 AM CDT Respiratory Rate 16 02/28/2024 10:26 AM CDT Oxygen Saturation 100% 02/28/2024 10:26 AM CDT Inhaled Oxygen Concentration - - Weight 90.7 kg (200 lb) 02/21/2024 5:12 PM CDT Height 170.2 cm (5' 7) 02/21/2024 5:12 PM CDT Body Mass Index 31.32 02/21/2024 5:12 PM CDT Plan of Treatment Health Maintenance Due Date Last Done Comments Cervical Cancer Screening Pa p Smear (Age 30 to 64) Every 3 Years 1992 Annual Physical 1995 Hepatitis C 2010 Hepatitis B Vaccines (1 of 3 - 19+ 3-dose series) 2011 HPV Vaccines (1 - 3-dose SCD M series) 2019 Cervical Cancer Screening Pa p with HPV Testing (Age 30 to 64) Every 5 Years 2022 Cervical Cancer Screening with HPV 2022 COVID-19 Vaccine (1 - 2023-2 5 season) 2025 DTaP, Tdap and Td Vaccines ( 2 - Td or Tdap) 02/20/2034 02/21/2024 Meningococcal B Vaccine Aged Out No l onger eligible based on patient's age to complete this topic Meningococcal Vaccine Aged Out No inga renata eligible based on patient's age to complete this topic Pneumococcal Vaccine: Pediat rics (0 to 5 Years) and At-Risk Patients (6 to 49 Years) Aged Out No longer eligi ble based on patient's age to complete this topic RSV Immunizations Under 20 Months Aged Out No longer eligible based on patient's age to complete this topic Insurance [employer] Member Subscriber Plan / Payer (Ef fective 2024-Present) Name:Neva Muñoz Relation to Subscriber:Self Name:Neva Muñoz Payer ID:Not on file Group ID:Not on file Type:Not on file Address: [address] [id number] Care Teams Tire Curer Relationship Specialty Start Date End Date None, Provider, MD PCP - General UNKNOWN PHYSICIAN SPECIALTY 02/21/24
--- OUTSIDE RECORDS SUMMARY | 2025-06-03 18:38 | XMS_ITS | Clinical Summary ---
Author Organization [facility] Address [address] [place] [address] Care Team Providers Care State Inspector Name Role Phone Unknown, Notinfile Primary Care Provider Unavail able Allergies No known active allergies Medications escitalopram (LEXAPRO) 20 mg tablet Take 1 tablet (20 mg total) by mouth daily Active lithium ER (LITHOBID) 300 mg CR tablet Take 1 tablet (300 mg total) by mouth nightly Active lithium 150 mg capsule Take 1 capsule (150 mg total) by mouth daily Active traZODone (DESYREL) 50 mg tablet Take 1 tablet (50 mg total) by mouth nightly Active levonorgestrel/ ethin.estradiol (ALTAVERA, 28, ORAL) Take by mouth Active QUEtiapine (SEROquel) 300 mg tablet Take 1 tablet (300 mg total) by mouth nightly Active naltrexone (DEPADE) 50 mg tablet Take 1 tablet (50 mg total) by mouth daily Active guaiFENesin ER (MUCINEX) 600 mg 12 hr tablet Take 1 tablet (600 mg total) by mouth 2 (two) times a day 60 tablet 10/06/2024 Active Active Problems Problem Noted Date Diagnosed Date Bipolar 1 disorder 10/03/2024 Assessment & Plan (10/03/2024 11:52 AM KENO WRITER / RUNNER): -on home meds - quetiapine, escitalopram, lithium, trazodone -watch for serotonin syndrome Acute respiratory failure with hypoxia Assessment & Plan (10/03/2024 11:53 AM KENO WRITER / RUNNER): New 02 requirement 2/2 RLL PNA -see PNA Pneumonia of right lower lobe due to Mycoplasma pneumoniae 10/02/2024 Assessment & Plan (10/05/2024 11:35 AM KENO WRITER / RUNNER): Pt with 10 days fever, cough, sputum production who presented with shortness of breath. -RVP + M pneumoniae, negative legionella, CXR with RLL consolidation -CTX and azithromycin for 5 days for CAP coverage -wean 02 as tolerated for 02 sat >92% -CT chest without contrast showed dense consolidations RLL and RML -tessalon pearls and mucinex -incentive spirometer and PEP therapy -start prednisone 40mg x 5 days Immunizations Immunization Administration Dates Next Due COVID-19 mRNA ([employer]) 0.3 m L (30 mcg) vaccine (12 years and up) 10/06/2024 Influenza, Trivalent, Preservative Free, Intramu scular 10/06/2024 Medical History Medical History Date Comments Bipolar 1 disorder (HCC) Social History Tobacco Use Types Packs/Day Years Used Date Smoking Tobacco: Never Smokeless Tobacco: Never Tobacco Cessation:Counseling Given: Not Answered [facility] Utilities Answer Date Recorded In the past 12 months has [employer] electric, gas, oil, or water Certain threatened to shut off services in your home? No 10/08/2024 Social Connection and Isolation Panel Answer Date Recorded In a typical week, how many times do you talk on the phone with family, friends, or neighbors? More than three times a week 10/08/2024 How often do you get togethe r with friends or relatives? Once a week 10/08/2024 How often do you attend chur ch or methodist services? Never 10/08/2024 Do you belong to any clubs o r organizations such as adventism groups, unions, fraternal or athletic groups, or school groups? No 10/08/2024 How often do you attend meet ings of the clubs or organizations you belong to? Never 10/08/2024 Are you , , di vorced, , never , or living with a partner? 10/08/2024 Overall Financial Resource Strain (CARDIA) Answe r Date Recorded How hard is it for you to pa y for the very basics like food, housing, medical care, and heating? Not very hard 10/08/2024 Hunger Vital Sign Answer Date Recorded Within the past 12 months, y ou worried that your food would run out before you got the money to buy more. Never true 10/08/19 Within the past 12 months, t he food you bought just didn't last and you didn't have money to get more. Never true 10/08/2024 PRAPARE - Transportation Answer Date Re corded In the past 12 months, has l ack of transportation kept you from medical appointments or from getting medications? No 09/17 In the past 12 months, has l ack of transportation kept you from meetings, work, or from getting things needed for daily living? No 10/08/2024 Housing Stability Vital Sign Answer Giovanni e Recorded In the last 12 months, was t here a time when you were not able to pay the mortgage or rent on time? No 10/08/2024 In the past 12 months, how m any times have you moved where you were living? 0 10/08/2024 At any time in the past 12 m [facility], were you homeless or living in a half-way (including now)? No 10/08/2024 Personal Safety Answer Date Recorded Have you ever been in or are you currently in a harmful physical or emotional relationship or is someone making you feel afraid or unsafe? Denies 10/01/2024 Comments Unknown Sex and Gender Information Value Date Recorded Sex Assigned at Not on file Legal Sex Female 6:56 PM KENO WRITER / RUNNER Gender Identity Not on file Sexual Orientation Not on file Obstetrics History Last Filed Vital Signs Vital Sign Reading Time Taken Comments Blood Pressure 126/74 10/06/2024 8:25 AM KENO WRITER / RUNNER Pulse 105 10/06/2024 8:25 AM KENO WRITER / RUNNER Temperature 36.3 C (97.3 F) 10/06/2024 8:25 AM KENO WRITER / RUNNER Respiratory Rate 18 10/06/2024 8:25 AM KENO WRITER / RUNNER Oxygen Saturation 95% 10/06/2024 8:25 AM KENO WRITER / RUNNER Inhaled Oxygen Concentration - - Weight 94.3 kg (207 lb 12.8 oz) 10/06/2024 5:31 AM KENO WRITER / RUNNER Height 170.2 cm (5' 7) 10/06/2024 5:31 AM KENO WRITER / RUNNER Body Mass Index 32.55 10/06/2024 5:31 AM KENO WRITER / RUNNER Plan of Treatment Health Maintenance Due Date Last Done Comments Cervical Cancer Screening 1992 Depression Screening 1992 Hepatitis C Screening 1992 Varicella Vaccines (1 of 2 - 13+ 2-dose series) 2005 Hepatitis B Screening 2010 Regular Well Visit/Exam 18-64 2010 HPV Vaccines (1 - 3-dose SCD M series) 2019 Influenza Vaccine (#1) 2025 10/06/2024 DTaP/Tdap/Td Vaccine (2 - Td or Tdap) 02/20/2034 02/21/2024 Pneumococcal vaccine <65 Aged Out No longer eligible based on patient's age to complete this topic Insurance [facility] H[facility]/PPO Address: [address] [address] [place] [address] [employer] ACCESS CHOICE ANTHEM ACCESS CHOICE Advance Directives For more information, please contact: [phone] * Full Code (Latest Code Status on File) Date Activated Date Inactivated Comments 10/02/2024 10:28 PM 10/06/2024 10:24 PM Care Teams State Inspector Relationship Specialty Start Date End Date Unknown, Notinfile PCP - General 10/01/24
--- NOTE | 2025-06-03 18:45 | ED_ITS ---
HPI - Alcohol General Chief Complaint: Alcohol <SEBLE Mccoy Last Filed: 06/04/25 00:46> Stated Complaint: etoh+, si comments <SEBLE Mccoy Last Filed: 06/04/25 00:46> Source: patient, EMS and police <Iris Haines PA-C - Last Filed: 06/04/25 00:46> Mode of arrival: EMS <SEBLE Mccoy Last Filed: 06/04/25 00:46> Limitations: intoxication <SEBLE Mccoy Last Filed: 06/04/25 00:46> History of Present Illness HPI narrative: Patient is a 34 y/o female who presents to the ED via EMS with report of suicidal ideation. EMS/PD [employer] assistant providing information. PD reports they were notified by patient's counselor that she was potentially suicidal. Patient reportedly saw her counselor on Saturday and expressed suicidal ideation at that time. She then missed her appointment today. The counselor attempted to contact patient several times but was unable to reach patient. Then called 911. Patient admits to drinking a large amount of alcohol today. She does admit to having recent suicidal ideation. Denies attempt on her life today, but EMS did report that she stated that she would go buy a gun to kill herself. Denies homicidal ideation. <SEBLE Mccoy Last Filed: 06/04/25 00:46> Related Data Home Medications: Home Medications ?Medication ?Instructions ?Recorded ?Confirmed ?Last Taken ?Type escitalopram oxalate 10 mg tablet 10 mg PO DAILY 07/2412/10/24 Unknown History lithium carbonate 450 mg 450 mg PO DAILY 07/24/22 Unknown History tablet,extended release quetiapine 100 mg tablet 100 mg PO QHS 07/24/2212/10 Unknown History trazodone 50 mg tablet 50 mg PO QHS PRN 11/09/24 Unknown History <SEBLE Mccoy Last Filed: 06/04/25 00:46> Allergies/Adverse Reactions: Allergies Allergy/AdvReac Type Severity Reaction Status Date / Time No Known Allergies Allergy Verified 06/03/25 20:36 <Iris Haines PA-C - Last Filed: 06/04/25 00:46> Review of Systems 2 Review of Systems: All systems reviewed & are unremarkable except as noted in HPI. <Iris Haines PA-C - Last Filed: 06/04/25 00:46> All systems reviewed & are unremarkable except as noted in HPI and below < Iris Haines PA-C - Last Filed: 06/04/25 00:46> FOR[facility]LY [facility] Past Medical History Medical History: Medical History Localized swelling, mass and lump, right upper limb Depression with anxiety <Iris Haines PA-C - Last Filed: 06/04/25 00:46> Family History Family History: Family History Father Alcoholism Hypertension Depression Mother Hypertension Depression <Iris Haines PA-C - Last Filed: 06/04/25 00:46> Social History Social History: Social History Social History: Single Smoking status: Never smoker Second hand tobacco smoke exposure: No Alcohol intake: current Drinks per week: 6 Substance use: never Substance use type: marijuana Do You Feel Safe in your Home?: Yes Lack of Transportation: No Lack of Food: Never True Current Housing: I Have Housing Concerned About Future Housing: No Difficulty Paying Gas/Electric Bills: No Difficulty Paying for Meds: No Currently Unemployed: No Education: Don't Know Difficulty w/ Childcare or Family Care: No Living arrangements: with family Occupation/Education: occupation Gender identity (if verbalized by the patient): Female Sexual Orientation (if Verbalized by the Patient): Straight or Heterosexual <Iris Haines PA-C - Last Filed: 06/04/25 00:46> Exam 2 Narrative: GENERAL: Intoxicated appearing, obese with BMI of 35.3, anxious, tearful HEAD: Normocephalic, atraumatic. RESPIRATORY: Airway patent, respirations nonlabored. Clear to auscultation bilaterally, no rales, rhonchi, wheezing. CARDIOVASCULAR: Regular rate and rhythm without murmurs, rubs, or gallops. MUSCULOSKELETAL: Moves all extremities. No gross deformities. SKIN: Warm, dry, normal color. NEURO: A&O X3. Speech clear. No ataxic movements. PSYCHIATRIC: Anxious, tearful, frustrated. Normal interaction. <Iris Haines PA-C - Last Filed: 06/04/25 00:46> Course TAKER OFF/PA Physician Supervision This visit was performed by both a physician and an APC; I performed all aspects of the medical decision making component of this evaluation as documented. <Leyda Shannon MD - Last Filed: 06/04/25 07:10> Reevaluation(s) Reevaluation #1: Patient is now clinically sober, and her alcohol level is now less than 100. She is being evaluated by crisis. <Leyda Shannon MD - Last Filed: 06/04/25 07:10> Vital Signs Vital signs: Vital Signs Temperature 98.7 F 06/03/25 18:34 Pulse Rate 88 06/03/25 18:34 Respiratory Rate 18 06/03/25 18:34 Blood Pressure 150/83 H 06/03/25 18:34 Pulse Oximetry 95 06/03/25 18:34 Oxygen Delivery Room Air 06/03/25 18:34 Temperature 98.7 F 06/03/25 18:34 Pulse Rate 90 06/04/25 07:31 Respiratory Rate 16 06/04/25 07:31 Blood Pressure 138/84 06/04/25 07:31 Pulse Oximetry 99 06/04/25 07:31 Oxygen Delivery Room Air 06/03/25 18:34 <Iris Haines PA-C - Last Filed: 06/04/25 00:46> Vital Signs Temperature 98.7 F 06/03/25 18:34 Pulse Rate 88 06/03/25 18:34 Respiratory Rate 18 06/03/25 18:34 Blood Pressure 150/83 H 06/03/25 18:34 Pulse Oximetry 95 06/03/25 18:34 Oxygen Delivery Room Air 06/03/25 18:34 Temperature 98.7 F 06/03/25 18:34 Pulse Rate 90 06/04/25 07:31 Respiratory Rate 16 06/04/25 07:31 Blood Pressure 138/84 06/04/25 07:31 Pulse Oximetry 99 06/04/25 07:31 Oxygen Delivery Room Air 06/03/25 18:34 <Leyda Shannon MD - Last Filed: 06/04/25 07:10> Vital Signs Temperature 98.7 F 06/03/25 18:34 Pulse Rate 88 06/03/25 18:34 Respiratory Rate 18 06/03/25 18:34 Blood Pressure 150/83 H 06/03/25 18:34 Pulse Oximetry 95 06/03/25 18:34 Oxygen Delivery Room Air 06/03/25 18:34 Temperature 98.7 F 06/03/25 18:34 Pulse Rate 90 06/04/25 07:31 Respiratory Rate 16 06/04/25 07:31 Blood Pressure 138/84 06/04/25 07:31 Pulse Oximetry 99 06/04/25 07:31 Oxygen Delivery Room Air 06/03/25 18:34 <Wisam Mcgill MD - Last Filed: 06/04/25 17:50> MDM - Alcohol MDM Narrative Medical decision making narrative: Patient presented to ED with report of suicidal ideation, alcohol intoxication. No suicide attempt but did report thoughts of wanting to buy a gun to kill herself. Vital signs stable upon arrival. Patient does appear intoxicated, anxious, tearful, difficult to obtain history from. History mostly obtained from PD/EMS. ED psych workup was initiated. Alcohol level at 277. Patient will require medical clearance of ETOH before evaluation by crisis. Repeat ETOH level timed for 0330. Care signed out to Dr. Shannon at shift change. <Iris Haines PA-C - Last Filed: 06/04/25 00:46> Patient presented to ED with report of suicidal ideation, alcohol intoxication. No suicide attempt but did report thoughts of wanting to buy a gun to kill herself. Vital signs stable upon arrival. Patient does appear intoxicated, anxious, tearful, difficult to obtain history from. History mostly obtained from PD/EMS. ED psych workup was initiated. Alcohol level at 277. Patient will require medical clearance of ETOH before evaluation by crisis. Repeat ETOH level timed for 0330. Care signed out to Dr. Shannon at shift change. --- Patient was signed out to me with crisis counselor evaluation pending. patient did sign a safety agreement. Patient family are comfortable the plan for discharge home. All questions and concerns were addressed. Patient did feel safe with the plan to be discharged home. <Wisam Mcgill MD - Last Filed: 06/04/25 17:50> Medical Records Attestation: I reviewed the patient's medical records. <Iris Haines PA-C - Last Filed: 06/04/25 00:46> Lab Data Attestation: I reviewed the patient's lab results. <Iris Haines PA-C - Last Filed: 06/04/25 00:46> Result diagrams: 06/03/25 19:17 06/03/25 19:17 <Iris Haines PA-C - Last Filed: 06/04/25 00:46> Labs: Lab Results 06/03/25 06/03/25 06/03/25 Range/Units 19:09 19:10 19:17 WBC 6.4 (4.5-10.0) K/mm3 RBC 3.89 L (4.2-5.4) M/mm3 Hgb 12.2 (12.0-15.0) g/dL Hct 36.7 L (37.0-47.0) % MCV 94.3 (80-100) fl MCH 31.4 (26-34) pg MCHC 33.2 (32-36) g/dl RDW 12.4 (11.5-14.5) % Plt Count 243 D (150-375) k/mm3 MPV 10.0 (7.4-10.4) fl Immature Gran % (Auto) 0.3 (0-0.5) % Neut % (Auto) 46.9 (45.5-73.1) % Lymph % (Auto) 44.6 H (18.3-44.2) % [place] % (Auto) 5.2 (2.6-8.5) % Eos % (Auto) 2.2 (0-4.4) % Baso % (Auto) 0.8 (0.2-1.2) % Lymph # (Auto) 2.85 (0.9-3.2) K/mm3 [place] # (Auto) 0.3 (0.1-0.6) K/mm3 Eos # (Auto) 0.1 (0-0.3) K/mm3 Baso # (Auto) 0.1 (0.0-0.1) K/mm3 Abs Immat Gran (auto) 0.02 (0.00-0.031) K/mm3 Absolute Neuts (auto) 3.0 (1.3-6.7) K/mm3 Absolute Nucleated RBC 0.000 (0.0-0.012) K/mm3 Nucleated RBC % 0.0 (0.0-0.2) % Sodium 142 (137-145) mmol/L Potassium 3.6 (3.4-5.0) mmol/L Chloride 111 H (98-107) mmol/L Carbon Dioxide 21 L (22-30) mmol/L Anion Gap 10 (4-12) mmol/L BUN 17 (7-17) mg/dL Creatinine 1.02 H (0.7-1.0) mg/dL Estim Creat Clear Calc 83 ml/min Estimated GFR > 60 (59 - ) Glucose 114 H (65-110) mg/dL Calcium 8.5 (8.4-10.2) mg/dL Total Bilirubin 0.1 L (0.2-1.3) mg/dL AST 29 (14-36) U/L ALT 13 (6-35) U/L Alkaline Phosphatase 77 (38-126) U/L Total Protein 7.5 (6.3-8.2) g/dL Albumin 4.3 (3.5-5.1) g/dL TSH 1.760 (0.465-4.680) uIU/mL Urine Color Yellow (Yellow) Urine Appearance Clear (Clear) Urine pH 6.5 (5.0-9.0) Ur Specific [place] 1.004 (1.001-1.035) Urine Protein Negative (Negative) mg/dL Urine Glucose (UA) Negative (Negative) mg/dL Urine Ketones Negative (Negative) mg/dL Ur Blood (Man) Negative (Negative) Urine Nitrate Negative (Negative) Urine Bilirubin Negative (Negative) Urine Urobilinogen 0.2 (<2.0) mg/dL Leukocyte Esterase Rfl Negative (Negative) TASNEEM/UL POC Urine HCG, Qual (Negative) Salicylates < 1.0 L (2-20) mg/dL Urine Opiates Screen Negative (Negative) Urine Methadone Screen Negative (Negative) Acetaminophen < 10 L (10-30) ug/mL Ur Barbiturates Screen Negative (Negative) Ur Phencyclidine Scrn Negative (Negative) Ur Amphetamine Screen Negative (Negative) U Benzodiazepines Scrn Negative (Negative) Urine Cocaine Screen Negative (Negative) U Cannabinoids Screen Negative (Negative) Ethyl Alcohol 277 (<10) mg/dL Influenza A (RT-PCR) Negative (Negative) Influenza B (RT-PCR) Negative (Negative) RSV (RT-PCR) Negative (Negative) SARS-CoV-2 RNA (RT-PCR) Negative (Negative) 06/03/25 06/04/25 Range/Units 19:18 03:38 WBC (4.5-10.0) K/mm3 RBC (4.2-5.4) M/mm3 Hgb (12.0-15.0) g/dL Hct (37.0-47.0) % MCV (80-100) fl MCH (26-34) pg MCHC (32-36) g/dl RDW (11.5-14.5) % Plt Count (150-375) k/mm3 MPV (7.4-10.4) fl Immature Gran % (Auto) (0-0.5) % Neut % (Auto) (45.5-73.1) % Lymph % (Auto) (18.3-44.2) % [place] % (Auto) (2.6-8.5) % Eos % (Auto) (0-4.4) % Baso % (Auto) (0.2-1.2) % Lymph # (Auto) (0.9-3.2) K/mm3 [place] # (Auto) (0.1-0.6) K/mm3 Eos # (Auto) (0-0.3) K/mm3 Baso # (Auto) (0.0-0.1) K/mm3 Abs Immat Gran (auto) (0.00-0.031) K/mm3 Absolute Neuts (auto) (1.3-6.7) K/mm3 Absolute Nucleated RBC (0.0-0.012) K/mm3 Nucleated RBC % (0.0-0.2) % Sodium (137-145) mmol/L Potassium (3.4-5.0) mmol/L Chloride (98-107) mmol/L Carbon Dioxide (22-30) mmol/L Anion Gap (4-12) mmol/L BUN (7-17) mg/dL Creatinine (0.7-1.0) mg/dL Estim Creat Clear Calc ml/min Estimated GFR (59 - ) Glucose (65-110) mg/dL Calcium (8.4-10.2) mg/dL Total Bilirubin (0.2-1.3) mg/dL AST (14-36) U/L ALT (6-35) U/L Alkaline Phosphatase (38-126) U/L Total Protein (6.3-8.2) g/dL Albumin (3.5-5.1) g/dL TSH (0.465-4.680) uIU/mL Urine Color (Yellow) Urine Appearance (Clear) Urine pH (5.0-9.0) Ur Specific [place] (1.001-1.035) Urine Protein (Negative) mg/dL Urine Glucose (UA) (Negative) mg/dL Urine Ketones (Negative) mg/dL Ur Blood (Man) (Negative) Urine Nitrate (Negative) Urine Bilirubin (Negative) Urine Urobilinogen (<2.0) mg/dL Leukocyte Esterase Rfl (Negative) TASNEEM/UL POC Urine HCG, Qual Negative (Negative) Salicylates (2-20) mg/dL Urine Opiates Screen (Negative) Urine Methadone Screen (Negative) Acetaminophen (10-30) ug/mL Ur Barbiturates Screen (Negative) Ur Phencyclidine Scrn (Negative) Ur Amphetamine Screen (Negative) U Benzodiazepines Scrn (Negative) Urine Cocaine Screen (Negative) U Cannabinoids Screen (Negative) Ethyl Alcohol 95 (<10) mg/dL Influenza A (RT-PCR) (Negative) Influenza B (RT-PCR) (Negative) RSV (RT-PCR) (Negative) SARS-CoV-2 RNA (RT-PCR) (Negative) <Iris Haines PA-C - Last Filed: 06/04/25 00:46> Lab Results 06/03/25 06/03/25 06/03/25 Range/Units 19:09 19:10 19:17 WBC 6.4 (4.5-10.0) K/mm3 RBC 3.89 L (4.2-5.4) M/mm3 Hgb 12.2 (12.0-15.0) g/dL Hct 36.7 L (37.0-47.0) % MCV 94.3 (80-100) fl MCH 31.4 (26-34) pg MCHC 33.2 (32-36) g/dl RDW 12.4 (11.5-14.5) % Plt Count 243 D (150-375) k/mm3 MPV 10.0 (7.4-10.4) fl Immature Gran % (Auto) 0.3 (0-0.5) % Neut % (Auto) 46.9 (45.5-73.1) % Lymph % (Auto) 44.6 H (18.3-44.2) % [place] % (Auto) 5.2 (2.6-8.5) % Eos % (Auto) 2.2 (0-4.4) % Baso % (Auto) 0.8 (0.2-1.2) % Lymph # (Auto) 2.85 (0.9-3.2) K/mm3 [place] # (Auto) 0.3 (0.1-0.6) K/mm3 Eos # (Auto) 0.1 (0-0.3) K/mm3 Baso # (Auto) 0.1 (0.0-0.1) K/mm3 Abs Immat Gran (auto) 0.02 (0.00-0.031) K/mm3 Absolute Neuts (auto) 3.0 (1.3-6.7) K/mm3 Absolute Nucleated RBC 0.000 (0.0-0.012) K/mm3 Nucleated RBC % 0.0 (0.0-0.2) % Sodium 142 (137-145) mmol/L Potassium 3.6 (3.4-5.0) mmol/L Chloride 111 H (98-107) mmol/L Carbon Dioxide 21 L (22-30) mmol/L Anion Gap 10 (4-12) mmol/L BUN 17 (7-17) mg/dL Creatinine 1.02 H (0.7-1.0) mg/dL Estim Creat Clear Calc 83 ml/min Estimated GFR > 60 (59 - ) Glucose 114 H (65-110) mg/dL Calcium 8.5 (8.4-10.2) mg/dL Total Bilirubin 0.1 L (0.2-1.3) mg/dL AST 29 (14-36) U/L ALT 13 (6-35) U/L Alkaline Phosphatase 77 (38-126) U/L Total Protein 7.5 (6.3-8.2) g/dL Albumin 4.3 (3.5-5.1) g/dL TSH 1.760 (0.465-4.680) uIU/mL Urine Color Yellow (Yellow) Urine Appearance Clear (Clear) Urine pH 6.5 (5.0-9.0) Ur Specific [place] 1.004 (1.001-1.035) Urine Protein Negative (Negative) mg/dL Urine Glucose (UA) Negative (Negative) mg/dL Urine Ketones Negative (Negative) mg/dL Ur Blood (Man) Negative (Negative) Urine Nitrate Negative (Negative) Urine Bilirubin Negative (Negative) Urine Urobilinogen 0.2 (<2.0) mg/dL Leukocyte Esterase Rfl Negative (Negative) TASNEEM/UL POC Urine HCG, Qual (Negative) Salicylates < 1.0 L (2-20) mg/dL Urine Opiates Screen Negative (Negative) Urine Methadone Screen Negative (Negative) Acetaminophen < 10 L (10-30) ug/mL Ur Barbiturates Screen Negative (Negative) Ur Phencyclidine Scrn Negative (Negative) Ur Amphetamine Screen Negative (Negative) U Benzodiazepines Scrn Negative (Negative) Urine Cocaine Screen Negative (Negative) U Cannabinoids Screen Negative (Negative) Ethyl Alcohol 277 (<10) mg/dL Influenza A (RT-PCR) Negative (Negative) Influenza B (RT-PCR) Negative (Negative) RSV (RT-PCR) Negative (Negative) SARS-CoV-2 RNA (RT-PCR) Negative (Negative) 06/03/25 06/04/25 Range/Units 19:18 03:38 WBC (4.5-10.0) K/mm3 RBC (4.2-5.4) M/mm3 Hgb (12.0-15.0) g/dL Hct (37.0-47.0) % MCV (80-100) fl MCH (26-34) pg MCHC (32-36) g/dl RDW (11.5-14.5) % Plt Count (150-375) k/mm3 MPV (7.4-10.4) fl Immature Gran % (Auto) (0-0.5) % Neut % (Auto) (45.5-73.1) % Lymph % (Auto) (18.3-44.2) % [place] % (Auto) (2.6-8.5) % Eos % (Auto) (0-4.4) % Baso % (Auto) (0.2-1.2) % Lymph # (Auto) (0.9-3.2) K/mm3 [place] # (Auto) (0.1-0.6) K/mm3 Eos # (Auto) (0-0.3) K/mm3 Baso # (Auto) (0.0-0.1) K/mm3 Abs Immat Gran (auto) (0.00-0.031) K/mm3 Absolute Neuts (auto) (1.3-6.7) K/mm3 Absolute Nucleated RBC (0.0-0.012) K/mm3 Nucleated RBC % (0.0-0.2) % Sodium (137-145) mmol/L Potassium (3.4-5.0) mmol/L Chloride (98-107) mmol/L Carbon Dioxide (22-30) mmol/L Anion Gap (4-12) mmol/L BUN (7-17) mg/dL Creatinine (0.7-1.0) mg/dL Estim Creat Clear Calc ml/min Estimated GFR (59 - ) Glucose (65-110) mg/dL Calcium (8.4-10.2) mg/dL Total Bilirubin (0.2-1.3) mg/dL AST (14-36) U/L ALT (6-35) U/L Alkaline Phosphatase (38-126) U/L Total Protein (6.3-8.2) g/dL Albumin (3.5-5.1) g/dL TSH (0.465-4.680) uIU/mL Urine Color (Yellow) Urine Appearance (Clear) Urine pH (5.0-9.0) Ur Specific [place] (1.001-1.035) Urine Protein (Negative) mg/dL Urine Glucose (UA) (Negative) mg/dL Urine Ketones (Negative) mg/dL Ur Blood (Man) (Negative) Urine Nitrate (Negative) Urine Bilirubin (Negative) Urine Urobilinogen (<2.0) mg/dL Leukocyte Esterase Rfl (Negative) TASNEEM/UL POC Urine HCG, Qual Negative (Negative) Salicylates (2-20) mg/dL Urine Opiates Screen (Negative) Urine Methadone Screen (Negative) Acetaminophen (10-30) ug/mL Ur Barbiturates Screen (Negative) Ur Phencyclidine Scrn (Negative) Ur Amphetamine Screen (Negative) U Benzodiazepines Scrn (Negative) Urine Cocaine Screen (Negative) U Cannabinoids Screen (Negative) Ethyl Alcohol 95 (<10) mg/dL Influenza A (RT-PCR) (Negative) Influenza B (RT-PCR) (Negative) RSV (RT-PCR) (Negative) SARS-CoV-2 RNA (RT-PCR) (Negative) <Leyda Shannon MD - Last Filed: 06/04/25 07:10> Lab Results 06/03/25 06/03/25 06/03/25 Range/Units 19:09 19:10 19:17 WBC 6.4 (4.5-10.0) K/mm3 RBC 3.89 L (4.2-5.4) M/mm3 Hgb 12.2 (12.0-15.0) g/dL Hct 36.7 L (37.0-47.0) % MCV 94.3 (80-100) fl MCH 31.4 (26-34) pg MCHC 33.2 (32-36) g/dl RDW 12.4 (11.5-14.5) % Plt Count 243 D (150-375) k/mm3 MPV 10.0 (7.4-10.4) fl Immature Gran % (Auto) 0.3 (0-0.5) % Neut % (Auto) 46.9 (45.5-73.1) % Lymph % (Auto) 44.6 H (18.3-44.2) % [place] % (Auto) 5.2 (2.6-8.5) % Eos % (Auto) 2.2 (0-4.4) % Baso % (Auto) 0.8 (0.2-1.2) % Lymph # (Auto) 2.85 (0.9-3.2) K/mm3 [place] # (Auto) 0.3 (0.1-0.6) K/mm3 Eos # (Auto) 0.1 (0-0.3) K/mm3 Baso # (Auto) 0.1 (0.0-0.1) K/mm3 Abs Immat Gran (auto) 0.02 (0.00-0.031) K/mm3 Absolute Neuts (auto) 3.0 (1.3-6.7) K/mm3 Absolute Nucleated RBC 0.000 (0.0-0.012) K/mm3 Nucleated RBC % 0.0 (0.0-0.2) % Sodium 142 (137-145) mmol/L Potassium 3.6 (3.4-5.0) mmol/L Chloride 111 H (98-107) mmol/L Carbon Dioxide 21 L (22-30) mmol/L Anion Gap 10 (4-12) mmol/L BUN 17 (7-17) mg/dL Creatinine 1.02 H (0.7-1.0) mg/dL Estim Creat Clear Calc 83 ml/min Estimated GFR > 60 (59 - ) Glucose 114 H (65-110) mg/dL Calcium 8.5 (8.4-10.2) mg/dL Total Bilirubin 0.1 L (0.2-1.3) mg/dL AST 29 (14-36) U/L ALT 13 (6-35) U/L Alkaline Phosphatase 77 (38-126) U/L Total Protein 7.5 (6.3-8.2) g/dL Albumin 4.3 (3.5-5.1) g/dL TSH 1.760 (0.465-4.680) uIU/mL Urine Color Yellow (Yellow) Urine Appearance Clear (Clear) Urine pH 6.5 (5.0-9.0) Ur Specific [place] 1.004 (1.001-1.035) Urine Protein Negative (Negative) mg/dL Urine Glucose (UA) Negative (Negative) mg/dL Urine Ketones Negative (Negative) mg/dL Ur Blood (Man) Negative (Negative) Urine Nitrate Negative (Negative) Urine Bilirubin Negative (Negative) Urine Urobilinogen 0.2 (<2.0) mg/dL Leukocyte Esterase Rfl Negative (Negative) TASNEEM/UL POC Urine HCG, Qual (Negative) Salicylates < 1.0 L (2-20) mg/dL Urine Opiates Screen Negative (Negative) Urine Methadone Screen Negative (Negative) Acetaminophen < 10 L (10-30) ug/mL Ur Barbiturates Screen Negative (Negative) Ur Phencyclidine Scrn Negative (Negative) Ur Amphetamine Screen Negative (Negative) U Benzodiazepines Scrn Negative (Negative) Urine Cocaine Screen Negative (Negative) U Cannabinoids Screen Negative (Negative) Ethyl Alcohol 277 (<10) mg/dL Influenza A (RT-PCR) Negative (Negative) Influenza B (RT-PCR) Negative (Negative) RSV (RT-PCR) Negative (Negative) SARS-CoV-2 RNA (RT-PCR) Negative (Negative) 06/03/25 06/04/25 Range/Units 19:18 03:38 WBC (4.5-10.0) K/mm3 RBC (4.2-5.4) M/mm3 Hgb (12.0-15.0) g/dL Hct (37.0-47.0) % MCV (80-100) fl MCH (26-34) pg MCHC (32-36) g/dl RDW (11.5-14.5) % Plt Count (150-375) k/mm3 MPV (7.4-10.4) fl Immature Gran % (Auto) (0-0.5) % Neut % (Auto) (45.5-73.1) % Lymph % (Auto) (18.3-44.2) % [place] % (Auto) (2.6-8.5) % Eos % (Auto) (0-4.4) % Baso % (Auto) (0.2-1.2) % Lymph # (Auto) (0.9-3.2) K/mm3 [place] # (Auto) (0.1-0.6) K/mm3 Eos # (Auto) (0-0.3) K/mm3 Baso # (Auto) (0.0-0.1) K/mm3 Abs Immat Gran (auto) (0.00-0.031) K/mm3 Absolute Neuts (auto) (1.3-6.7) K/mm3 Absolute Nucleated RBC (0.0-0.012) K/mm3 Nucleated RBC % (0.0-0.2) % Sodium (137-145) mmol/L Potassium (3.4-5.0) mmol/L Chloride (98-107) mmol/L Carbon Dioxide (22-30) mmol/L Anion Gap (4-12) mmol/L BUN (7-17) mg/dL Creatinine (0.7-1.0) mg/dL Estim Creat Clear Calc ml/min Estimated GFR (59 - ) Glucose (65-110) mg/dL Calcium (8.4-10.2) mg/dL Total Bilirubin (0.2-1.3) mg/dL AST (14-36) U/L ALT (6-35) U/L Alkaline Phosphatase (38-126) U/L Total Protein (6.3-8.2) g/dL Albumin (3.5-5.1) g/dL TSH (0.465-4.680) uIU/mL Urine Color (Yellow) Urine Appearance (Clear) Urine pH (5.0-9.0) Ur Specific [place] (1.001-1.035) Urine Protein (Negative) mg/dL Urine Glucose (UA) (Negative) mg/dL Urine Ketones (Negative) mg/dL Ur Blood (Man) (Negative) Urine Nitrate (Negative) Urine Bilirubin (Negative) Urine Urobilinogen (<2.0) mg/dL Leukocyte Esterase Rfl (Negative) TASNEEM/UL POC Urine HCG, Qual Negative (Negative) Salicylates (2-20) mg/dL Urine Opiates Screen (Negative) Urine Methadone Screen (Negative) Acetaminophen (10-30) ug/mL Ur Barbiturates Screen (Negative) Ur Phencyclidine Scrn (Negative) Ur Amphetamine Screen (Negative) U Benzodiazepines Scrn (Negative) Urine Cocaine Screen (Negative) U Cannabinoids Screen (Negative) Ethyl Alcohol 95 (<10) mg/dL Influenza A (RT-PCR) (Negative) Influenza B (RT-PCR) (Negative) RSV (RT-PCR) (Negative) SARS-CoV-2 RNA (RT-PCR) (Negative) <Wisam Mcgill MD - Last Filed: 06/04/25 17:50> Discharge Plan Discharge Clinical Impression: Depression with suicidal ideation Alcohol intoxication Qualifiers: Complication of substance-induced condition: uncomplicated Qualified Code(s): F 10.920 - Alcohol use, unspecified with intoxication, uncomplicated <Iris Haines PA-C - Last Filed: 06/04/25 00:46> Patient Disposition: Still a Patient <Iris Haines PA-C - Last Filed: 06/04/25 00:46> Condition: Stable <SEBLE Mccoy Last Filed: 06/04/25 00:46> Additional Instructions: Have close follow-up with your counselor is as outpatient. <SEBLE Mccoy Last Filed: 06/04/25 00:46> Patient Language: [place] <Iris Haines PA-C - Last Filed: 06/04/25 00:46> Prescriptions: No Action lithium carbonate 450 mg tablet extended release 450 mg PO DAILY quetiapine 100 mg tablet 100 mg PO QHS escitalopram oxalate 10 mg tablet 10 mg PO DAILY trazodone 50 mg tablet 50 mg PO QHS PRN levonorgestrel-ethinyl estrad [Altavera (28)] 0.15-0.03 mg tablet See Rx Instructions .ROUTE .COMPLEX Qty: 84 1RF Dose Instruction: TAKE 1 TABLET BY MOUTH DAILY, FOLLOWING THE ORDER ON BLISTER CARD Rx Instructions: TAKE 1 TABLET BY MOUTH DAILY, FOLLOWING THE ORDER ON BLISTER CARD <Iris Haines PA-C - Last Filed: 06/04/25 00:46> Follow-up/Referrals: Cecil Millan MD [Primary Care Provider, Family Practice] <Iris Haines PA-C - Last Filed: 06/04/25 00:46>
--- NOTE | 2025-06-03 19:10 | PC.NURSE ---
Pt told this RN that she started the morning off by going to the gas station and buying 5 tall [place]aws. Reports she ended up drinking four more tall White Claws, then an additional four after that. Pt states she mentioned suicidal thoughts to her therapist on Saturday, but hasn't seen her since. Pt states she was supposed to have an appointment at 10:30am but pt forgot because she was drinking. Therapist messaged her around noon wanting to reschedule appointment for 1800 this evening via telehealth with specific concerns of discussing the SI she mentioned Saturday. Pt did not respond, therapist messaged again asking if pt would prefer to meet in person. Pt then messaged therapist back at 15:40 stating that she is not feeling up to meeting today and wants to reschedule again. Then at 16:15 pt sent another message stating; We don't have to meet anymore, thank you for your help. It was shortly after this time that the police showed up to her house. Pt tearful upon arrival, not wanting to stay. RN talked with pt and discussed the ER process. Pt was then cooperative. Denies any form of SI or self harm today, states she has only had alcohol today, no additional substances. Pt has clear speech, ambulates well with staff standby.
[2025-06-03 19:20] LABS: BEDSIDEPREGUCG Negative (Negative)
[2025-06-03 19:25] LABS: Hematocrit 36.7 % (37.0-47.0); Hemoglobin 12.2 g/dL (12.0-15.0); Immature Granulocyte Percent A 0.3 % (0-0.5); Lymphocytes Absolute Auto 2.85 K/mm3 (0.9-3.2); Mean Corpuscular HGB Conc 33.2 g/dl (32-36); Mean Corpuscular Hemoglobin 31.4 pg (26-34); Mean Corpuscular Volume 94.3 fl (80-100); Nucleated Red Blood Cells Absolute Auto 0.000 K/mm3 (0.0-0.012); Nucleated Red Blood Cells Perc 0.0 % (0.0-0.2); Platelet Count Result 243 k/mm3 (150-375); Red Blood Count 3.89 M/mm3 (4.2-5.4); White Blood Count 6.4 K/mm3 (4.5-10.0)
[2025-06-03 19:36] LABS: Acetaminophen < 10 ug/mL (10-30); Alanine Aminotransferase 13 U/L (6-35); Albumin Level 4.3 g/dL (3.5-5.1); Alkaline Phosphatase 77 U/L (38-126); Anion Gap 10 mmol/L (4-12); Aspartate Amino Transferase 29 U/L (14-36); Bilirubin,Total 0.1 mg/dL (0.2-1.3); Blood Urea Nitrogen 17 mg/dL (7-17); Calcium 8.5 mg/dL (8.4-10.2); Carbon Dioxide 21 mmol/L (22-30); Chloride 111 mmol/L (98-107); Estimated CRCL calculation 83 ml/min; Estimated Glomerular Filt Rate > 60; Glucose 114 mg/dL (65-110); Potassium 3.6 mmol/L (3.4-5.0); Salicylate < 1.0 mg/dL (2-20); Sodium 142 mmol/L (137-145); Total Protein 7.5 g/dL (6.3-8.2)
[2025-06-03 19:49] LABS: Cannabinoid Screen Urine Negative (Negative)
[2025-06-03 20:00] LABS: Influenza A QL RT-PCR Negative (Negative); Influenza B QL RT-PCR Negative (Negative); RSV RNA, RT-PCR Negative (Negative); SARS-CoV-2 RNA PCR Negative (Negative)
[2025-06-03 20:00] LABS: Add Urine Microscopic? NO; Appearance Urine Clear (Clear); Glucose Urine UA Negative (Negative); Leukocyte Esterase Ur Negative LEU/UL (Negative); Nitrate Urine Negative (Negative); Specific Grav Ur 1.004 (1.001-1.035)
[2025-06-03 20:11] LABS: Thyroid Stimulating Hormone 1.760 uIU/mL (0.465-4.680)
[2025-06-03] MEDS: ONDANSETRON HCL ODT 4 MG TABLET PO (22:21)
[2025-06-03] MEDS: LITHIUM CARBONATE 300 MG CAPSULE PO (22:24)
[2025-06-03] MEDS: DIVALPROEX SODIUM ER 250 MG TAB.24H PO (22:24)
--- NOTE | 2025-06-04 07:13 | PC.NURSE ---
Crisis at bedside talking with pt.
[2025-06-04 07:31] VITALS: BP 138/84; PULSE 90; RESP 16; O2SAT 99
== END 2025-06-04 07:32 | disposition still patient (30) ==
PROVIDERS: Emergency Provider Physician Assistant; PCP Family Medicine
DX: R45.851 Suicidal ideations (principal); F41.8 Other specified anxiety disorders; F10.120 Alcohol abuse with intoxication, uncomplicated; Y90.8 Blood alcohol level of 240 mg/100 ml or more; Z11.52 Encounter for screening for COVID-19; Z79.899 Other long term (current) drug therapy
CPT/HCPCS: 36415; 80053; 80143; 80179; 80307; 81003; 81025; 82077; 84443; 85025; 87637; 99284; A9270

== ENCOUNTER 2025-07-15 10:35 | Emergency (ER) | payer OTHER, SELFPAY ==
--- OUTSIDE RECORDS SUMMARY | 2025-03-11 06:45 | XMS_ITS ---
Author Organization [facility] Address [address] [place] [address] Care Team Providers Care Drier Tender Name Role Phone Nataly Whalen MD Primary Care Provider Valencia Salud Randall Unavailable [phone] Allergies No Known Allergies REASON FOR VISIT 1 month f/u Medications Medication SIG (Take, Route, Frequency, Duration) Notes Start Date End Date Status [place] Carbonate 150 MG Capsule 1 capsule every morning Oral once a day; Duration: 90 days Active QUEtiapine Fumarate 300 MG Tablet 1 tablet at bedtime Orally once a day; Duration: 90 days Active traZODone HCl 50 MG Tablet 1 tablet ever y night Oral Once a day; Duration: 90 days Active [place] Carbonate ER 300 MG Tablet Extended Release [...] Social Info Question Answer Notes AUDIT-C (Standard) Points 12 Interpretation Negative Did you have a drink contain ing alcohol in the past year? Yes How often did you have six or [...] 03/11/2025 Encounters Encounter Location Date Provider Diagnosis [facility] [address] [facility] [address] [place] [address] 03/11/2025 Salud Ward Encounter for screening for [...] Mild Depression Progress Notes * GIDEON DAWN:1990 (34 yo F)Acc No.[id number]:03/11/2025 Patient: GLADIS MO Provider: Jena Ward :1990 A ge:34 Y S ex:Female Date:03/11/2025 Address:[facility] [address] [facility] Pcp:Nataly Whalen MD Subjective: * Chief [...] Tablet 1 tablet Oral Once a day J[place] Carbonate ER 300 MG Tablet Extended Release 1 tablet Oral every night traZODone HCl 50 MG Tablet 1 tablet every night Oral Once a day QUEtiapine Fumarate 300 MG Tablet 1 tablet at bedtime Orally once a day [place] Carbonate 150 MG Capsule 1 capsule every morning Oral once a day Acamprosate Calcium 333 MG Tablet Delayed Release TAKE 2 TABLETS BY MOUTH TWICE A DAY FOR 30 DAYS Medication List reviewed and reconciled with the patientTaking Altavera 0.15-30 MG-MCG Tablet 1 tablet Orally Once a day Taking Escitalopram Oxalate 20 MG Tablet 1 tablet Oral Once a day Taking [place] Carbonate ER 300 MG Tablet Extended Release 1 tablet Oral every night Taking traZODone HCl 50 MG Tablet 1 tablet every night Oral Once a day Taking QUEtiapine Fumarate 300 MG Tablet 1 tablet at bedtime Orally once a day Taking [place] Carbonate 150 MG Capsule 1 capsule every [...] Plan: * Procedure Codes: 1 036F TOBACCO [id number] NORMAL BP READING DOC F/U NOT [id number] MOST RECENT SYSTOLIC BP < 140MM [id number] MOST RECENT DIASTOLIC BP < 90MM HG Billing Information: * Procedure Codes: 1036F TOBACCO NON-USER. G8783 NORMAL BP READING DOC F/U NOT RQR. G8752 MOST RECENT SYSTOLIC BP < 140MM HG. G8754 MOST RECENT DIASTOLIC BP < 90MM HG. * Electronic signature of David Ward on 07/15/2025 at 11:37 AM CDT Sign off status: Pending * Provider: Jena Ward Date: 0 03/11/2025 Generated for Melonie jasmine/José Luis/Milad on: 1 11:37 AM CDT
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
[2025-07-15 10:39] VITALS: BP 141/88; PULSE 81; RESP 18; TEMP 36.4; O2SAT 97
[2025-07-15 11:37] VITALS: BP 135/77; PULSE 92; RESP 12; O2SAT 100
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
--- OUTSIDE RECORDS SUMMARY | 2025-07-15 11:37 | XMS_ITS | Clinical Summary ---
Author Organization [facility] Address [facility] [place] [address] Care Team Providers Care Service Observer Chief Name Role Phone None, Provider MD Primary [...] with HPV 2022 COVID-19 Vaccine (1 - 2024-2 6 season) 2025 Influenza Adult (#1) 2025 DTaP, Tdap and Td Vaccines ( 2 - Td or Tdap) 02/20/2034 02/21/2024 Hepatitis A Vaccines Aged Out No long er eligible based on patient's age to complete this topic Meningococcal B Vaccine Aged Out No l [...] this topic Insurance [employer] Care Teams Service Observer Chief Relationship Specialty Start Date End Date None, Provider, MD PCP - General UNKNOWN PHYSICIAN SPECIALTY 02/21/24
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
--- NOTE | 2025-07-15 12:26 | ECG_ITS ---
Test Date: 2025-07-15 12:44:18 Measurements Intervals [place] Rate: 67 P: 17 WY: 156 QRS: 55 QRSD: 116 T: 42 QT: 426 QTc: 452 Interpretive Statements SINUS RHYTHM INTRAVENTRICULAR CONDUCTION DELAY BORDERLINE ECG Compared to ECG 09/27/2024 18:21:03 Intraventricular conduction delay now present Electronically Signed On 07-15-2025 12:51:53 CDT by Randall Grayson D.O.
[2025-07-15] MEDS: SODIUM CHLORIDE 0.9% IV 1,000 ML 999 ML IV CONT (12:41)
[2025-07-15 12:51] LABS: BEDSIDEPREGUCG Negative (Negative)
[2025-07-15 12:56] LABS: Hematocrit 41.1 % (37.0-47.0); Hemoglobin 13.6 g/dL (12.0-15.0); Immature Granulocyte Percent A 0.4 % (0-0.5); Lymphocytes Absolute Auto 2.69 K/mm3 (0.9-3.2); Mean Corpuscular HGB Conc 33.1 g/dl (32-36); Mean Corpuscular Hemoglobin 31.4 pg (26-34); Mean Corpuscular Volume 94.9 fl (80-100); Nucleated Red Blood Cells Absolute Auto 0.000 K/mm3 (0.0-0.012); Nucleated Red Blood Cells Perc 0.0 % (0.0-0.2); Platelet Count Result 303 k/mm3 (150-375); Red Blood Count 4.33 M/mm3 (4.2-5.4); White Blood Count 7.4 K/mm3 (4.5-10.0)
[2025-07-15 12:57] LABS: Add Urine Microscopic? NO; Appearance Urine Clear (Clear); Glucose Urine UA Negative (Negative); Leukocyte Esterase Ur Negative LEU/UL (Negative); Nitrate Urine Negative (Negative); Specific Grav Ur 1.003 (1.001-1.035)
[2025-07-15 13:03] VITALS: BP 127/75; PULSE 66; RESP 16; O2SAT 97
[2025-07-15 13:07] LABS: Alanine Aminotransferase 16 U/L (6-35); Albumin Level 4.5 g/dL (3.5-5.1); Alkaline Phosphatase 75 U/L (38-126); Anion Gap 10 mmol/L (4-12); Aspartate Amino Transferase 35 U/L (14-36); Bilirubin,Total 0.3 mg/dL (0.2-1.3); Blood Urea Nitrogen 18 mg/dL (7-17); Calcium 9.1 mg/dL (8.4-10.2); Carbon Dioxide 25 mmol/L (22-30); Chloride 107 mmol/L (98-107); Estimated CRCL calculation 111 ml/min; Estimated Glomerular Filt Rate > 60; Glucose 90 mg/dL (65-110); Lipase 100 U/L (23-300); Potassium 3.9 mmol/L (3.4-5.0); Sodium 142 mmol/L (137-145); Total Protein 8.0 g/dL (6.3-8.2)
--- OUTSIDE RECORDS SUMMARY | 2025-07-15 13:07 | XMS_ITS | Clinical Summary ---
Author Organization [facility] Address [address] [place] [address] Care Team Providers Care Metal Furniture Assembly Supervisor Name Role Phone Unknown, Notinfile Primary Care [...] 10/03/2024 Assessment & Plan (10/03/2024 11:52 AM PUMP SERVICER SUPERVISOR): -on home meds - quetiapine, escitalopram, lithium, trazodone -watch for serotonin syndrome Acute respiratory failure with hypoxia Assessment & Plan (10/03/2024 11:53 AM PUMP SERVICER SUPERVISOR): New 02 requirement 2/2 RLL PNA -see PNA Pneumonia of right lower lobe due to Mycoplasma pneumoniae 10/02/2024 Assessment & Plan (10/05/2024 11:35 AM PUMP SERVICER SUPERVISOR): Pt with 10 days fever, cough, sputum [...] Immunization Administration Dates Next Due COVID-19 mRNA ([employer]) 0.3 m L (30 mcg) vaccine (12 years and up) 10/06/2024 Influenza, Trivalent, Preservative Free, Intramu scular 10/06/2024 Medical History Medical History Date Comments Bipolar 1 disorder (HCC) Social History Tobacco Use Types Packs/Day Years Used Date Smoking Tobacco: Never Smokeless Tobacco: Never Tobacco Cessation:Counseling Given: Not Answered [facility] Utilities Answer Date Recorded In the past 12 months has [employer] electric, gas, oil, or water [employer] threatened to shut off services in your [...] often do you attend chur ch or tenriism services? Never 10/08/2024 Do you belong to any clubs o r organizations such as taoist groups, unions, fraternal or athletic groups, or [...] any time in the past 12 m [facility], were you homeless or living in a intermediate (including now)? No 10/08/2024 Personal Safety Answer Date Recorded Have you ever been in or are you currently in a harmful physical or emotional relationship or is someone making you feel afraid or unsafe? Denies 10/01/2024 Comments Unknown Sex and Gender Information Value Date Recorded Sex Assigned at Not on file Legal Sex Female 6:56 PM PUMP SERVICER SUPERVISOR Gender Identity Not on file Sexual Orientation Not on file Obstetrics History Last Filed Vital Signs Vital Sign Reading Time Taken Comments Blood Pressure 126/74 10/06/2024 8:25 AM PUMP SERVICER SUPERVISOR Pulse 105 10/06/2024 8:25 AM PUMP SERVICER SUPERVISOR Temperature 36.3 C (97.3 F) 10/06/2024 8:25 AM PUMP SERVICER SUPERVISOR Respiratory Rate 18 10/06/2024 8:25 AM PUMP SERVICER SUPERVISOR Oxygen Saturation 95% 10/06/2024 8:25 AM PUMP SERVICER SUPERVISOR Inhaled Oxygen Concentration - - Weight 94.3 kg (207 lb 12.8 oz) 10/06/2024 5:31 AM PUMP SERVICER SUPERVISOR Height 170.2 cm (5' 7) 10/06/2024 5:31 AM PUMP SERVICER SUPERVISOR Body Mass Index 32.55 10/06/2024 5:31 AM PUMP SERVICER SUPERVISOR Plan of Treatment Health Maintenance Due Date [...] patient's age to complete this topic Insurance [facility] CHO[facility] [employer]US [employer] ACCESS CHOICE ANTHEM ACCESS CHOICE Advance Directives For more information, please contact: [phone] * Full Code (Latest Code Status on File) Date Activated Date Inactivated Comments 10/02/2024 10:28 PM 10/06/2024 10:24 PM Care Teams Metal Furniture Assembly Supervisor Relationship Specialty Start Date End Date Unknown, Notinfile PCP - General 10/01/24
--- OUTSIDE RECORDS SUMMARY | 2025-07-15 13:07 | XMS_ITS | Clinical Summary ---
Author Organization [facility] Address [facility] [place] [address] Care Team Providers Care Plastics Factory Worker Name Role Phone None, Provider MD Primary [...] Insurance [employer] Care Teams Plastics Factory Worker Relationship Specialty Start Date End Date None, Provider, MD PCP - General UNKNOWN PHYSICIAN SPECIALTY 02/21/24
[2025-07-15 15:30] VITALS: BP 120/81; PULSE 70; RESP 17; O2SAT 100
== END 2025-07-15 15:31 | disposition home or self-care (01) ==
PROVIDERS: Emergency Provider Emergency Medicine; PCP Family Medicine
DX: M54.6 Pain in thoracic spine (principal); M25.511 Pain in right shoulder; V09.9XXA Pedestrian injured in unspecified transport accident, initial encounter
CPT/HCPCS: 36415; 70450; 71260; 72125; 73030; 74177; 80053; 81003; 81025; 83690; 85025; 93005; 96360; 99284; J7030; Q9967

== ENCOUNTER 2025-09-02 11:18 | Observation (INO) | payer BC, SELFPAY ==
--- OUTSIDE RECORDS SUMMARY | 2025-03-11 05:45 | XMS_ITS ---
Author Organization [facility] [employer] Address [address] [place] [address] Care Team Providers Care Thread Trimmer Name Role Phone Nataly Whalen MD Primary Care Provider Valencia Salud Randall Unavailable [phone] Allergies No Known Allergies REASON FOR VISIT 1 month f/u Medications Medication SIG (Take, Route, Frequency, Duration) Notes Start Date End Date Status Newton Carbonate 150 MG Capsule 1 capsule every morning Oral once a day; Duration: 90 days Active QUEtiapine Fumarate 300 MG Tablet 1 tablet at bedtime Orally once a day; Duration: 90 days Active traZODone HCl 50 MG Tablet 1 tablet ever y night Oral Once a day; Duration: 90 days Active Newton Carbonate ER 300 MG Tablet Extended Release 1 tablet Oral every night; Duration: 90 days Active Escitalopram Oxalate 20 MG Tablet 1 tablet Oral Once a day; Duration: 90 days Active Altavera 0.15-30 MG-MCG Tablet 1 tablet Orally Once a day; Duration: 28 days 10/24/2023 Active Acamprosate Calcium 333 MG Tablet Delayed Release TAKE 2 TABLETS BY MOUTH TWICE A DAY FOR 30 DAYS; Duration: 90 Active Social History Tobacco Use: Social History Observation Description Date Details (start date - stop date) Never Smoker NA - NA Sex Assigned At : Social History Observation Description Sex Assigned At Female Social History Drug/Alcohol: Social Info Question Answer Notes AUDIT-C (Standard) Did you have a drink containing alcohol in the past year? Yes Points 12 Interpretation Negative How often did you have six or more drinks on one occasion in the past year? 4 or more times a week (4 points) How many drinks did you have on a typical day when you were drinking in the past year? 10 or more drinks (4 points) How often did you have a drink containing alcohol in the past year? Daily or almost daily (4 points) Tobacco Use: Social Info Question Answer Notes Tobacco Control (Standard) Tobacco use: Nonsmoker Vital Signs Blood pressure systolic 130 mm Hg 03/11/20 25 Blood pressure diastolic 80 mm Hg 025 Heart Rate 73 /min 03/11/2025 Height 68.00 in 03/11/2025 Weight 207 lbs 03/11/2025 BMI 31.47 kg/m2 03/11/2025 Height-cm 172.72 cm 03/11/2025 Weight-kg 93.89 kg 03/11/2025 Encounters Encounter Location Date Provider Diagnosis [facility] [employer] [facility] [address] [facility] [address] [place] [address] 03/11/2025 Salud Ward Encounter for screening for cardiovascular disorders Z13.6 Assessments Encounter Date Diagnosis (ICD Code) Assessment Notes Treatment Notes Treatment Clinical Notes Section Notes 03/11/2025 Encounter for screening for cardiovascular disorders (ICD-10 - Z13.6) Plan Of Treatment No Information History and Physical Notes * HPI (History of Present Illness) Category Sub-Category Detail Notes Category Not es Depression screening PHQ-9 Little inte rest or pleasure in doing things: Not at all Feeling down, depressed, or hopeless: Se veral days Trouble falling or staying asleep, or sl eeping too much: Not at all Feeling tired or having little energy: S everal days Poor appetite or overeating: Nearly ever y day Feeling bad about yourself o r that you are a failure, or have let yourself or your family down: Several days Trouble concentrating on thi ngs, such as reading the newspaper or watching television: Not at all Moving or speaking so slowly that other people could have noticed; or the opposite, being so fidgety or restless that you have been moving around a lot more than usual: Not at all Thoughts that you would be b nuris off or of hurting yourself in some way: Several days (Consider Suicide Assessment Risk) Total Score: 7 Interpretation: Mild Depression Progress Notes * GIDEON DAWN:1990 (35 yo F)Acc No.[id number]:03/11/2025 Patient: GLADIS MO Provider: Jena Ward :1990 A ge:34 Y S ex:Female Date:03/11/2025 Address:[facility] [address] [facility] Pcp:Nataly Whalen MD Subjective: * Chief Complaints: * 1 month f/u * HPI: D epression screening: PHQ-9 L ittle interest or pleasure in doing things?Not at all F eeling down, depressed, or hopeless S everal T rouble falling or staying asleep, or sleeping too much N ot at all F eeling tired or having little energy S ever P oor appetite or overeating N early every day F eeling bad about yourself or that you are a failure, or have let yourself or your family down S ever T rouble concentrating on things, such as reading the newspaper or watching television N ot at all M oving or speaking so slowly that other people could have noticed; or the opposite, being so fidgety or restless that you have been moving around a lot more than usual N ot at all T houghts that you would be better off or of hurting yourself in some way S ever (Consider Suicide Assessment Risk) T otal Score 7 I nterpretation M ild Depression H istory of Presenting Problem: BP normal. * ROS: P erformance Met: N ormal blood pressure reading documented, follow-up not required ( [id number]). * Medical History: Past Psychiatric History: Anxiety Disorder,Panic Disorder,Major Depressive Episode,Bipolar Disorder Problems: Alcohol dependence Attention deficit hyperactivity disorder, predominantly inattentive type Bipolar affective disorder, current episode depression Generalized anxiety disorder Polycystic ovary syndrome * Social History: T obacco Use: T obacco Control (Standard) T obacco use: N onsmoker D rug/Alcohol: A KENDALL-C (Standard) D id you have a drink containing alcohol in the past year? Y es H ow often did you have six or more drinks on one occasion in the past year? 4 or more times a week (4 points) H ow many drinks did you have on a typical day when you were drinking in the past year? 1 0 or more drinks (4 points) H ow often did you have a drink containing alcohol in the past year? D aily or almost daily (4 points) P oints 1 2 I nterpretation N egative * Medications: T akingAltavera 0.15-30 MG-MCG Tablet 1 tablet Orally Once a day Escitalopram Oxalate 20 MG Tablet 1 tablet Oral Once a day Newton Carbonate ER 300 MG Tablet Extended Release 1 tablet Oral every night traZODone HCl 50 MG Tablet 1 tablet every night Oral Once a day QUEtiapine Fumarate 300 MG Tablet 1 tablet at bedtime Orally once a day Newton Carbonate 150 MG Capsule 1 capsule every morning Oral once a day Acamprosate Calcium 333 MG Tablet Delayed Release TAKE 2 TABLETS BY MOUTH TWICE A DAY FOR 30 DAYS Medication List reviewed and reconciled with the patientTaking Altavera 0.15-30 MG-MCG Tablet 1 tablet Orally Once a day Taking Escitalopram Oxalate 20 MG Tablet 1 tablet Oral Once a day Taking Newton Carbonate ER 300 MG Tablet Extended Release 1 tablet Oral every night Taking traZODone HCl 50 MG Tablet 1 tablet every night Oral Once a day Taking QUEtiapine Fumarate 300 MG Tablet 1 tablet at bedtime Orally once a day Taking Newton Carbonate 150 MG Capsule 1 capsule every morning Oral once a day Taking Acamprosate Calcium 333 MG Tablet Delayed Release TAKE 2 TABLETS BY MOUTH TWICE A DAY FOR 30 DAYS Medication List reviewed and reconciled with the patient * Allergies: N .K.D.A.yesAllergies Verified. Objective: * Vitals: B P:130/80mm Hg, HR:73/min, Wt:207lbs, Wt-k.89 kg, Ht: 68.00 in, Ht-cm: 172.72 cm, BMI:31.47Index, Body Surface Area: 2.12. Assessment: * Assessment: 1. E ncounter for screening for cardiovascular disorders - Z13.6 Plan: * Procedure Codes: 1 036F TOBACCO [id number] NORMAL BP READING DOC F/U NOT [id number] MOST RECENT SYSTOLIC BP < 140MM [id number] MOST RECENT DIASTOLIC BP < 90MM HG Billing Information: * Procedure Codes: 1036F TOBACCO NON-USER. G8783 NORMAL BP READING DOC F/U NOT RQR. G8752 MOST RECENT SYSTOLIC BP < 140MM HG. G8754 MOST RECENT DIASTOLIC BP < 90MM HG. * Electronic signature of David Ward on 09/02/2025 at 02:00 PM NECK FITTER Sign off status: Pending * Provider: Jena Ward Date: 0 03/11/2025 Generated for Melonie jasmine/José Luis/Milad on: 1 11/03/2024 02:00 PM NECK FITTER
[2025-09-02] VITALS (15 sets, daily range): BP systolic 94–147; BP diastolic 54–98; PULSE 63–89; RESP 12–23; TEMP 36.8–37.1; O2SAT 94–100; BMI 34.3
--- NOTE | 2025-09-02 11:21 | ECG_ITS ---
Test Date: 2025-09-02 11:41:01 Measurements Intervals [place] Rate: 86 P: 52 WV: 156 QRS: 53 QRSD: 122 T: 44 QT: 408 QTc: 490 Interpretive Statements SINUS RHYTHM POSSIBLE LEFT ATRIAL ENLARGEMENT RIGHT BUNDLE BRANCH BLOCK ABNORMAL ECG Compared to ECG 07/15/2025 12:44:18 RIGHT BUNDLE BRANCH BLOCK NOW PRESENT Electronically Signed On 09-02-2025 13:30:25 UPKEEP WORKER by Randall Grayson D.O.
--- NOTE | 2025-09-02 11:26 | ED_ITS ---
HPI - Overdose General Chief Complaint: Overdose <Allison Aleman PA-C - Last Filed: 09/02/25 15:38> Stated Complaint: lithium od <Allison Aleman PA-C - Last Filed: 09/02/25 15:38> Time Seen by Provider: 09/02/25 11:26 <Allison Aleman PA-C - Last Filed: 09/02/25 15:38> Source: patient <SEBLE Montez Last Filed: 09/02/25 15:38> Mode of arrival: EMS <SEBLE Montez Last Filed: 09/02/25 15:38> Limitations: no limitations <SEBLE Montez Last Filed: 09/02/25 15:38> History of Present Illness HPI Narrative: This is a 35 year old female that presents to the ER for overdose. Reportedly she took 80, 150mg [place] tablets. She had written a letter stating that she loved her family. Called and said she wasn't going to work and police were called for well fare check. She reported to police her ingestion. EMS was called. She reports she is unsure why she did this. Reports history of self harm and hospitalizations in the past. <Allison Aleman PA-C - Last Filed: 09/02/25 15:38> Related Data Home Medications: Home Medications ?Medication ?Instructions ?Recorded ?Confirmed ?Last Taken ?Type escitalopram oxalate 10 mg tablet 10 mg PO DAILY 07/2409/02/25 09/02/25 History lithium carbonate 450 mg 450 mg PO DAILY 07/24/2209/02/25 History tablet,extended release quetiapine 100 mg tablet 300 mg PO QHS 07/24/2209/0209/01/25 History trazodone 50 mg tablet 50 mg PO QHS PRN sleep 11/0909/02/25 09/01/25 History <SEBLE Montez Last Filed: 09/02/25 15:38> Allergies/Adverse Reactions: Allergies Allergy/AdvReac Type Severity Reaction Status Date / Time No Known Allergies Allergy Verified 09/02/25 16:18 <Allison Aleman PA-C - Last Filed: 09/02/25 15:38> Review of Systems 2 Review of Systems: All systems reviewed & are unremarkable except as noted in HPI and below <Allison Aleman PA-C - Last Filed: 09/02/25 15:38> PMFSH Past Medical History Medical History: Medical History Localized swelling, mass and lump, right upper limb Depression with anxiety <Allison Aleman PA-C - Last Filed: 09/02/25 15:38> Family History Family History: Family History Father Alcoholism Hypertension Depression Mother Hypertension Depression <Allison Aleman PA-C - Last Filed: 09/02/25 15:38> Social History Social History: Social History Social History: Single Smoking status: Never smoker Second hand tobacco smoke exposure: No Alcohol intake: current Drinks per week: 56 Substance use: never Substance use type: does not use Last use: 09/02/25 Lack of Transportation: No Lack of Food: Never True Current Housing: I Have Housing Concerned About Future Housing: YES Difficulty Paying Gas/Electric Bills: No Difficulty Paying for Meds: No Currently Unemployed: No Education: High School Diploma/GED Difficulty w/ Childcare or Family Care: No Living arrangements: with family Occupation/Education: occupation Gender identity (if verbalized by the patient): Female Sexual Orientation (if Verbalized by the Patient): Straight or Heterosexual Spiritual care concerns: No <SEBLE Montez Last Filed: 09/02/25 15:38> Exam 2 Narrative: GENERAL: Depressed, well-nourished, and in no acute distress. HEAD: Normocephalic, atraumatic. EYES: PERRLA and EOMI. ENT: Nares clear, no rhinorrhea or epistaxis. Mucous membranes moist. Oropharynx without tonsillar hypertrophy exudate or other lesions. Bilateral TMs pearly rivera non-bulging NECK: Supple. No adenopathy or masses. CHEST: Clear to auscultation. No respiratory distress. No wheezes rales or rhonchi HEART: Regular rate and rhythm. No murmur heard. Normal peripheral pulses. EXTREMITIES: Normal range of motion. No edema. SKIN: Warm, dry, no rash. NEURO: No focal deficits. Alert and oriented x3. PSYCH: Flat mood and affect <Allison Aleman PA-C - Last Filed: 09/02/25 15:38> Course FORMING PROCESS WORKER/PA Physician Supervision This visit was performed by both a physician and an APC; I performed all aspects of the medical decision making component of this evaluation as documented. Reportedly took 80 tabs of lithium. Called poison control center, does not recommend whole bowel irrigation at this time. Fluids, ICU, dialysis as needed. Otherwise well-appearing with normal labs here. <Leyda Shannon MD - Last Filed: 09/02/25 17:32> Consultations Poison control: Time of Consult: 15:33 <Allison Aleman PA-C - Last Filed: 09/02/25 15:38> I have discussed the care of this patient with the following provider: Recommends repeat [place] level every 4-6 hrs for 24-48 hours, hydration <Allison Aleman PA-C - Last Filed: 09/02/25 15:38> Vital Signs Vital signs: Vital Signs Temperature 98.3 F 09/02/25 11:21 Pulse Rate 84 09/02/25 11:21 Respiratory Rate 20 09/02/25 11:21 Blood Pressure 122/95 H 09/02/25 11:21 Pulse Oximetry 95 09/02/25 11:21 Oxygen Delivery Room Air 09/02/25 11:21 Temperature 98.7 F 09/02/25 16:00 Pulse Rate 76 09/02/25 16:00 Respiratory Rate 17 09/02/25 16:00 Blood Pressure 102/72 09/02/25 16:00 Pulse Oximetry 94 09/02/25 16:00 Oxygen Delivery Room Air 09/02/25 11:51 <Allison Aleman PA-C - Last Filed: 09/02/25 15:38> Vital Signs Temperature 98.3 F 09/02/25 11:21 Pulse Rate 84 09/02/25 11:21 Respiratory Rate 20 09/02/25 11:21 Blood Pressure 122/95 H 09/02/25 11:21 Pulse Oximetry 95 09/02/25 11:21 Oxygen Delivery Room Air 09/02/25 11:21 Temperature 98.7 F 09/02/25 16:00 Pulse Rate 76 09/02/25 16:00 Respiratory Rate 17 09/02/25 16:00 Blood Pressure 102/72 09/02/25 16:00 Pulse Oximetry 94 09/02/25 16:00 Oxygen Delivery Room Air 09/02/25 11:51 <Leyda Shannon MD - Last Filed: 09/02/25 17:32> [facility] Narrative Medical decision making narrative: Patient presents to the emergency department after an intentional lithium ingestion. Reportedly took 80, 150 mg lithium tablets. Patient also noted to have an alcohol level of 287. No other concerning findings on laboratory evaluation. Patient is somewhat drowsy, but oriented and neurologically intact at this time. Her vitals are stable. Poison Control was contacted. Recommend obtaining lithium levels every 4-6 hours for the 1st 24-48 hours. Fluid hydration recommended, monitor QT interval, monitor for arrhythmias, seizures. Patient hydrated with 2 L of IV fluids in the ER. Will be admitted for further observation and crisis intervention <Allison Aleman PA-C - Last Filed: 09/02/25 15:38> Differential Diagnosis Differential Diagnosis: Overdose, suicide attempt, electrolyte derangement, kidney dysfunction, alcohol intoxication, arrhythmia, seizure <Allison Aleman PA-C - Last Filed: 09/02/25 15:38> Lab Data [facility] Lab Attestation statement: I personally reviewed the patient's lab results. <Allison Aleman PA-C - Last Filed: 09/02/25 15:38> Result diagrams: 09/02/25 11:35 09/02/25 16:41 <Allison Aleman PA-C - Last Filed: 09/02/25 15:38> Labs: Lab Results 09/02/25 09/02/25 09/02/25 Range/Units 11:35 11:55 12:06 WBC 7.4 (4.5-10.0) K/mm3 RBC 4.14 L (4.2-5.4) M/mm3 Hgb 13.5 (12.0-15.0) g/dL Hct 39.5 (37.0-47.0) % MCV 95.4 (80-100) fl MCH 32.6 (26-34) pg MCHC 34.2 (32-36) g/dl RDW 12.9 (11.5-14.5) % Plt Count 257 (150-375) k/mm3 MPV 10.0 (7.4-10.4) fl Immature Gran % (Auto) 0.4 (0-0.5) % Neut % (Auto) 66.7 (45.5-73.1) % Lymph % (Auto) 24.9 (18.3-44.2) % [place] % (Auto) 6.3 (2.6-8.5) % Eos % (Auto) 0.9 (0-4.4) % Baso % (Auto) 0.8 (0.2-1.2) % Lymph # (Auto) 1.85 (0.9-3.2) K/mm3 [place] # (Auto) 0.5 (0.1-0.6) K/mm3 Eos # (Auto) 0.1 (0-0.3) K/mm3 Baso # (Auto) 0.1 (0.0-0.1) K/mm3 Abs Immat Gran (auto) 0.03 (0.00-0.031) K/mm3 Absolute Neuts (auto) 5.0 (1.3-6.7) K/mm3 Absolute Nucleated RBC 0.000 (0.0-0.012) K/mm3 Nucleated RBC % 0.0 (0.0-0.2) % PT 12.4 (11.1-14.7) Seconds INR 0.9 APTT 27.5 (22.3-36.8) Seconds Sodium 135 L (137-145) mmol/L Potassium 3.5 (3.4-5.0) mmol/L Chloride 100 (98-107) mmol/L Carbon Dioxide 24 (22-30) mmol/L Anion Gap 11 (4-12) mmol/L BUN 12 D (7-17) mg/dL Creatinine 0.78 (0.7-1.0) mg/dL Estim Creat Clear Calc 109 ml/min Estimated GFR > 60 (59 - ) Glucose 101 (65-110) mg/dL Lactic Acid 1.1 (0.7-2.0) mmol/L Calcium 9.2 (8.4-10.2) mg/dL Magnesium 1.9 (1.6-2.3) mg/dL Total Bilirubin 0.4 (0.2-1.3) mg/dL AST 33 (14-36) U/L ALT 18 (6-35) U/L Alkaline Phosphatase 78 (38-126) U/L Ammonia 13 (9-30) umol/L Total Protein 8.5 H (6.3-8.2) g/dL Albumin 4.7 (3.5-5.1) g/dL TSH 1.010 (0.465-4.680) uIU/mL Urine Color Yellow (Yellow) Urine Appearance Clear (Clear) Urine pH 6.5 (5.0-9.0) Ur Specific [place] 1.003 (1.001-1.035) Urine Protein Negative (Negative) mg/dL Urine Glucose (UA) Negative (Negative) mg/dL Urine Ketones Negative (Negative) mg/dL Ur Blood (Man) Negative (Negative) Urine Nitrate Negative (Negative) Urine Bilirubin Negative (Negative) Urine Urobilinogen 0.2 (<2.0) mg/dL Leukocyte Esterase Rfl Negative (Negative) TASNEEM/UL POC Urine HCG, Qual Negative (Negative) Salicylates < 1.0 L (2-20) mg/dL Urine Opiates Screen Negative (Negative) Urine Methadone Screen Negative (Negative) Acetaminophen < 10 L (10-30) ug/mL Ur Barbiturates Screen Negative (Negative) Ur Phencyclidine Scrn Negative (Negative) Ur Amphetamine Screen Negative (Negative) U Benzodiazepines Scrn Negative (Negative) [place] 0.6 (0.6-1.2) mmol/L Urine Cocaine Screen Negative (Negative) U Cannabinoids Screen Negative (Negative) Ethyl Alcohol 287 (<10) mg/dL <Allison Aleman PA-C - Last Filed: 09/02/25 15:38> Lab Results 09/02/25 09/02/25 09/02/25 Range/Units 11:35 11:55 12:06 WBC 7.4 (4.5-10.0) K/mm3 RBC 4.14 L (4.2-5.4) M/mm3 Hgb 13.5 (12.0-15.0) g/dL Hct 39.5 (37.0-47.0) % MCV 95.4 (80-100) fl MCH 32.6 (26-34) pg MCHC 34.2 (32-36) g/dl RDW 12.9 (11.5-14.5) % Plt Count 257 (150-375) k/mm3 MPV 10.0 (7.4-10.4) fl Immature Gran % (Auto) 0.4 (0-0.5) % Neut % (Auto) 66.7 (45.5-73.1) % Lymph % (Auto) 24.9 (18.3-44.2) % [place] % (Auto) 6.3 (2.6-8.5) % Eos % (Auto) 0.9 (0-4.4) % Baso % (Auto) 0.8 (0.2-1.2) % Lymph # (Auto) 1.85 (0.9-3.2) K/mm3 [place] # (Auto) 0.5 (0.1-0.6) K/mm3 Eos # (Auto) 0.1 (0-0.3) K/mm3 Baso # (Auto) 0.1 (0.0-0.1) K/mm3 Abs Immat Gran (auto) 0.03 (0.00-0.031) K/mm3 Absolute Neuts (auto) 5.0 (1.3-6.7) K/mm3 Absolute Nucleated RBC 0.000 (0.0-0.012) K/mm3 Nucleated RBC % 0.0 (0.0-0.2) % PT 12.4 (11.1-14.7) Seconds INR 0.9 APTT 27.5 (22.3-36.8) Seconds Sodium 135 L (137-145) mmol/L Potassium 3.5 (3.4-5.0) mmol/L Chloride 100 (98-107) mmol/L Carbon Dioxide 24 (22-30) mmol/L Anion Gap 11 (4-12) mmol/L BUN 12 D (7-17) mg/dL Creatinine 0.78 (0.7-1.0) mg/dL Estim Creat Clear Calc 109 ml/min Estimated GFR > 60 (59 - ) Glucose 101 (65-110) mg/dL Lactic Acid 1.1 (0.7-2.0) mmol/L Calcium 9.2 (8.4-10.2) mg/dL Magnesium 1.9 (1.6-2.3) mg/dL Total Bilirubin 0.4 (0.2-1.3) mg/dL AST 33 (14-36) U/L ALT 18 (6-35) U/L Alkaline Phosphatase 78 (38-126) U/L Ammonia 13 (9-30) umol/L Total Protein 8.5 H (6.3-8.2) g/dL Albumin 4.7 (3.5-5.1) g/dL TSH 1.010 (0.465-4.680) uIU/mL Urine Color Yellow (Yellow) Urine Appearance Clear (Clear) Urine pH 6.5 (5.0-9.0) Ur Specific [place] 1.003 (1.001-1.035) Urine Protein Negative (Negative) mg/dL Urine Glucose (UA) Negative (Negative) mg/dL Urine Ketones Negative (Negative) mg/dL Ur Blood (Man) Negative (Negative) Urine Nitrate Negative (Negative) Urine Bilirubin Negative (Negative) Urine Urobilinogen 0.2 (<2.0) mg/dL Leukocyte Esterase Rfl Negative (Negative) TASNEEM/UL POC Urine HCG, Qual Negative (Negative) Salicylates < 1.0 L (2-20) mg/dL Urine Opiates Screen Negative (Negative) Urine Methadone Screen Negative (Negative) Acetaminophen < 10 L (10-30) ug/mL Ur Barbiturates Screen Negative (Negative) Ur Phencyclidine Scrn Negative (Negative) Ur Amphetamine Screen Negative (Negative) U Benzodiazepines Scrn Negative (Negative) [place] 0.6 (0.6-1.2) mmol/L Urine Cocaine Screen Negative (Negative) U Cannabinoids Screen Negative (Negative) Ethyl Alcohol 287 (<10) mg/dL <Leyda Shannon MD - Last Filed: 09/02/25 17:32> ECG Data EKG #1: ECG completion date: 09/02/25 <Allison Aleman PA-C - Last Filed: 09/02/25 15:38> normal rate, sinus rhythm, RBBB and normal QT (borderline) <Allison Aleman PA-C - Last Filed: 09/02/25 15:38> Critical Care Time Critical Care Time Critical Care Time: No <Allison Aleman PA-C - Last Filed: 09/02/25 15:38> Discharge Plan Discharge Clinical Impression: Intentional lithium overdose Qualifiers: Encounter type: initial encounter Qualified Code(s): T56.892A - Toxic effect of other metals, intentional self-harm, initial encounter Alcohol intoxication Qualifiers: Complication of substance-induced condition: uncomplicated Qualified Code(s): F 10.920 - Alcohol use, unspecified with intoxication, uncomplicated <Allison Aleman PA-C - Last Filed: 09/02/25 15:38> Patient Disposition: Still a Patient <Allison Aleman PA-C - Last Filed: 09/02/25 15:38> Condition: Serious <Allison Aleman PA-C - Last Filed: 09/02/25 15:38>
--- NOTE | 2025-09-02 11:26 | PC.NURSE ---
spoke to [place] Poison Control High risk Overdose, increased risk for GI, Neuro and Cardiac concerns. If pt became obtunded, comatose, pt will need Hemo-Dialysis maybe suffer, Hypotension, EKG changes, N/V/D recommended medical clearance labs, Berry baseline level, then q4 FOR 24-48 HRS. Recommended IVF
[2025-09-02 11:43] LABS: Hematocrit 39.5 % (37.0-47.0); Hemoglobin 13.5 g/dL (12.0-15.0); Immature Granulocyte Percent A 0.4 % (0-0.5); Lymphocytes Absolute Auto 1.85 K/mm3 (0.9-3.2); Mean Corpuscular HGB Conc 34.2 g/dl (32-36); Mean Corpuscular Hemoglobin 32.6 pg (26-34); Mean Corpuscular Volume 95.4 fl (80-100); Nucleated Red Blood Cells Absolute Auto 0.000 K/mm3 (0.0-0.012); Nucleated Red Blood Cells Perc 0.0 % (0.0-0.2); Platelet Count Result 257 k/mm3 (150-375); Red Blood Count 4.14 M/mm3 (4.2-5.4); White Blood Count 7.4 K/mm3 (4.5-10.0)
[2025-09-02 11:56] LABS: Alanine Aminotransferase 18 U/L (6-35); Albumin Level 4.7 g/dL (3.5-5.1); Alkaline Phosphatase 78 U/L (38-126); Anion Gap 11 mmol/L (4-12); Aspartate Amino Transferase 33 U/L (14-36); Bilirubin,Total 0.4 mg/dL (0.2-1.3); Blood Urea Nitrogen 12 mg/dL (7-17); Calcium 9.2 mg/dL (8.4-10.2); Carbon Dioxide 24 mmol/L (22-30); Chloride 100 mmol/L (98-107); Estimated CRCL calculation 109 ml/min; Estimated Glomerular Filt Rate > 60; Glucose 101 mg/dL (65-110); Magnesium 1.9 mg/dL (1.6-2.3); Potassium 3.5 mmol/L (3.4-5.0); Sodium 135 mmol/L (137-145); Total Protein 8.5 g/dL (6.3-8.2)
[2025-09-02 11:57] LABS: Acetaminophen < 10 ug/mL (10-30); Ammonia 13 umol/L (9-30); Salicylate < 1.0 mg/dL (2-20)
[2025-09-02] MEDS: SODIUM CHLORIDE 0.9% IV 1,000 ML 999 ML IV CONT (11:58)
[2025-09-02 12:02] LABS: Lithium 0.6 mmol/L (0.6-1.2)
[2025-09-02 12:03] LABS: INR 0.9; Prothrombin Time 12.4 Seconds (11.1-14.7)
[2025-09-02 12:04] LABS: Partial Thromboplastin Time 27.5 Seconds (22.3-36.8)
[2025-09-02 12:05] LABS: Add Urine Microscopic? NO; Appearance Urine Clear (Clear); Glucose Urine UA Negative (Negative); Leukocyte Esterase Ur Negative LEU/UL (Negative); Nitrate Urine Negative (Negative); Specific Grav Ur 1.003 (1.001-1.035)
[2025-09-02 12:08] LABS: BEDSIDEPREGUCG Negative (Negative)
[2025-09-02 12:32] LABS: Thyroid Stimulating Hormone 1.010 uIU/mL (0.465-4.680)
[2025-09-02 12:40] LABS: Cannabinoid Screen Urine Negative (Negative)
--- NOTE | 2025-09-02 13:07 | PC.NURSE ---
Pt requested for family friend to called and updated on pt status of admission. Yamila called at [phone]
--- OUTSIDE RECORDS SUMMARY | 2025-09-02 14:00 | XMS_ITS | Clinical Summary ---
Author Organization [facility] Address [address] [place] [address] Care Team Providers Care Graphic Manager Name Role Phone Unknown, Notinfile Primary Care [...] 10/03/2024 Assessment & Plan (10/03/2024 11:52 AM MEAT STOCKER): -on home meds - quetiapine, escitalopram, lithium, trazodone -watch for serotonin syndrome Acute respiratory failure with hypoxia Assessment & Plan (10/03/2024 11:53 AM MEAT STOCKER): New 02 requirement 2/2 RLL PNA -see PNA Pneumonia of right lower lobe due to Mycoplasma pneumoniae 10/02/2024 Assessment & Plan (10/05/2024 11:35 AM MEAT STOCKER): Pt with 10 days fever, cough, sputum [...] Immunization Administration Dates Next Due COVID-19 mRNA (Jooobz!) 0.3 m L (30 mcg) vaccine (12 years and up) 10/06/2024 Influenza, Trivalent, Preservative Free, Intramu scular 10/06/2024 Medical History Medical History Date Comments Bipolar 1 disorder (HCC) Social History Tobacco Use Types Packs/Day Years Used Date Smoking Tobacco: Never Smokeless Tobacco: Never Tobacco Cessation:Counseling Given: Not Answered [facility] Utilities Answer Date Recorded In the past 12 months has [employer] electric, gas, oil, or water [employer] threatened to shut off services in your [...] often do you attend chur ch or hinduism services? Never 10/08/2024 Do you belong to any clubs o r organizations such as christian groups, unions, fraternal or athletic groups, or [...] any time in the past 12 m [facility], were you homeless or living in a care home (including now)? No 10/08/2024 Personal Safety Answer Date Recorded Have you ever been in or are you currently in a harmful physical or emotional relationship or is someone making you feel afraid or unsafe? Denies 10/01/2024 Comments Unknown Sex and Gender Information Value Date Recorded Sex Assigned at Not on file Legal Sex Female 6:56 PM MEAT STOCKER Gender Identity Not on file Sexual Orientation Not on file Last Filed Vital Signs Vital Sign Reading Time Taken Comments Blood Pressure 126/74 10/06/2024 8:25 AM MEAT STOCKER Pulse 105 10/06/2024 8:25 AM MEAT STOCKER Temperature 36.3 C (97.3 F) 10/06/2024 8:25 AM MEAT STOCKER Respiratory Rate 18 10/06/2024 8:25 AM MEAT STOCKER Oxygen Saturation 95% 10/06/2024 8:25 AM MEAT STOCKER Inhaled Oxygen Concentration - - Weight 94.3 kg (207 lb 12.8 oz) 10/06/2024 5:31 AM MEAT STOCKER Height 170.2 cm (5' 7) 10/06/2024 5:31 AM MEAT STOCKER Body Mass Index 32.55 10/06/2024 5:31 AM MEAT STOCKER Plan of Treatment Health Maintenance Due Date Last Done Comments Cervical Cancer Screening 1992 Depression Screening 1992 Hepatitis C Screening 1992 Varicella Vaccines (1 of 2 - 13+ 2-dose series) 2004 Hepatitis B Screening 2010 Regular Well Visit/Exam 18-64 2010 Pneumococcal vaccine <65 (1 of 2 - PCV) 2011 HPV Vaccines (1 - 3-dose SCDM series) 2019 Influenza Vaccine (#1) 2025 10/06/2024 DTaP/Tdap/Td Vaccine (2 - Td or Tdap) 02/20/203403/2024 Insurance [facility] CHOICE PLUS [email or web address] ACCESS CHOICE [employer] ACCESS CHOICE Advance Directives For more information, please contact: [phone] * Full Code (Latest Code Status on File) Date Activated Date Inactivated Comments 10/02/2024 10:28 PM 10/06/2024 10:24 PM Care Teams Graphic Manager Relationship Specialty Start Date End Date Unknown, Notinfile PCP - General 10/01/24
--- OUTSIDE RECORDS SUMMARY | 2025-09-02 14:01 | XMS_ITS | Patient Health Record ---
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 Name Role Phone Koby MARISCAL, Nataly Primary Care Provider [place] Salud Randall Unavailable [phone] Pallavi Saran Unavailable [phone] Allergies No Known Allergies Reason For Referral No Information Medications Medication SIG (Take, Route, Frequency, Duration) Notes Start Date End Date Status [place] Carbonate 150 MG Capsule TAKE 1 CAPSULE BY MOUTH EVERY DAY IN THE MORNING; Duration: 90 Active Escitalopram Oxalate 20 MG Tablet TAKE 1 TABLET BY MOUTH EVERY DAY FOR 90 DAYS; Duration: 90 Active QUEtiapine Fumarate 300 MG Tablet TAKE 1 TABLET BY MOUTH EVERY DAY AT BEDTIME FOR 90 DAYS; Duration: 90 Active [place] Carbonate ER 300 MG Tablet Extended Release TAKE 1 TABLET BY MOUTH EVERY DAY AT NIGHT; Duration: 90 Active Altavera 0.15-30 MG-MCG Tablet 1 tablet Orally Once a day; Duration: 28 days 10/24/2023 Active Acamprosate Calcium 333 MG Tablet Delayed Release TAKE 2 TABLETS BY MOUTH TWICE A DAY FOR 30 DAYS Active traZODone HCl 50 MG Tablet TAKE 1 TABLET BY MOUTH EVERY DAY AT NIGHT; Duration: 90 Active Immunizations Vaccine Route Administration Date Status Commmelanie nts Pfizer Biontech Covid-19 Vac cine 2nd [...] decision-maker Yes Do you have Power of Pulverizing And Sifting Operator for Health or [facility] sole? No Safety issues: Are there any firearms [...] the past 12 months? No AUDIT-C (Standard) Did you have a drink [...] W/U Status Risk Notes Problem Alcohol dependence (36081162) Alcohol dependence, uncomplicated (F10.20) Active confirmed Problem Depressed bipolar I disorder (07867400) Bipolar disorder, current episode depressed, mild or moderate severity, unspecified (F31.30) Active confirmed Problem Generalized anxiety disorder (29509360) Generalized anxiety disorder (F41.1) Active confirmed Problem Insomnia (014043232) Insomnia, unspecified type (G47.00) Active confirmed Problem Social phobia (78082149) Social phobia (F40.10) Active confirmed Vital Signs Heart Rate 70 /min 03/15/2025 Height-cm 172.72 cm 03/15/2025 Blood pressure diastolic 76 mm Hg 03/15/2025 Weight-kg 95.26 kg 03/15/2025 Height 68.00 in 03/15/2025 Blood pressure systolic 124 mm Hg 03/15/2025 Weight 210 lbs 03/15/2025 BMI 31.93 kg/m2 03/15/2025 Encounters Encounter Location Date Provider Diagnosis [place] [address] [facility] [address] [place] [address] 09/17/2024 Saran Hernandezt Alcohol dependence, uncomplicated F10.20 ; Bipolar disorder, current episode depressed, mild or moderate severity, unspecified F31.30 and Social phobia F40.10 [place] [address] [facility] [address] [place] [address] 02/11/2025 Salud Ward Bipolar disorder, current episode depressed, mild or moderate severity, unspecified F31.30 ; Generalized anxiety disorder F41.1 ; Alcohol dependence, uncomplicated F10.20 ; Social phobia F40.10 ; Encounter for screening for cardiovascular disorders Z13.6 and Encounter for screening for depression Z13.31 [place] [address] [facility] [address] [place] [address] 03/15/2025 Salud Ward Bipolar disorder, current episode depressed, mild or moderate severity, unspecified F31.30 ; Generalized anxiety disorder F41.1 ; Alcohol dependence, uncomplicated F10.20 ; Insomnia, unspecified type G47.00 and Encounter for screening for depression Z13.31 [place] [address] [address] 06/28/2025 Salud Ward [place] [address] [address] 03/21/2025 Salud Ward [facility], [place] [address] [facility] [address] [place] [address] 08/10/2025 Salud Ward [facility], [place] [address] [facility] [address] [place] [address] 12/24/2024 Salud Ward Social phobia F40.10 ; Bipolar disorder, current episode depressed, mild or moderate severity, unspecified F31.30 and Alcohol dependence, uncomplicated F10.20 [place] [address] [facility] [address] [place] [address] 02/11/2025 Salud Ward [facility], [place] [address] [place] [address] 02/12/2025 Salud Ward Bipolar disorder, current episode depressed, mild or moderate severity, unspecified F31.30 [facility], [facility] [address] [place] [address] 02/19/2025 Salud Ward [place] [address] [place] [address] 04/26/2025 Salud Ward Bipolar disorder, current episode depressed, mild or moderate severity, unspecified F31.30 [facility] [address] [place] [address] 06/21/2025 Salud Ward [facility], [place] [address] [facility] [address] [place] [address] 06/25/2025 Salud Ward [facility], [place] [address] [address] [facility] [address] [facility] [address] [place] [address] 06/25/2025 Salud Ward Assessments Encounter Date Diagnosis (ICD Code) Assessment Notes Treatment Notes Treatment Clinical Notes Section Notes 09/17/2024 Alcohol dependence, uncomplicated (ICD-10 - F10.20) 09/17/2024 Bipolar disorder, current episode depressed, mild or moderate severity, unspecified (ICD-10 - F31.30) 02/11/2025 Bipolar disorder, current episode depressed, mild or moderate severity, unspecified (ICD-10 - F31.30) 02/11/2025 Generalized anxiety disorder (ICD-10 - F41.1) 12/24/2024 Social phobia (ICD-10 - F40.10) 02/12/2025 Bipolar disorder, current episode depressed, mild or moderate severity, unspecified (ICD-10 - F31.30) 03/15/2025 Bipolar disorder, current episode depressed, mild or moderate severity, unspecified (ICD-10 - F31.30) 03/15/2025 Generalized anxiety disorder (ICD-10 - F41.1) 04/26/2025 Bipolar disorder, current episode depressed, mild or moderate severity, unspecified (ICD-10 - F31.30) 03/15/2025 Alcohol dependence, uncomplicated (ICD-10 - F10.20) 02/11/2025 Alcohol dependence, uncomplicated (ICD-10 - F10.20) 12/24/2024 Bipolar disorder, current episode depressed, mild or moderate severity, unspecified (ICD-10 - F31.30) 09/17/2024 Social phobia (ICD-10 - F40.10) 12/24/2024 Alcohol dependence, uncomplicated (ICD-10 - F10.20) 02/11/2025 Social phobia (ICD-10 - F40.10) 03/15/2025 Insomnia, unspecified type (ICD-10 - G47.00) 03/15/2025 Encounter for screening for depression (ICD-10 [...] - Continue current counseling with Rosa villela Cammal - Follow up in 4 weeks Bipolar Disorder Assessment: Patient has a history of bipolar disorder, diagnosed during recent hospitalization at [facility]. Patient reports experiencing depressive episodes lasting 2 or more weeks, followed by periods of elevated mood with increased energy, motivation, and drive for life. Hypomania typically lasts 3-4 days. Patient does not report severe manic episodes, suggesting a possible bipolar II presentation. Currently stable on medication regimen. Plan: - Continue current medication regimen: - [place] - Trazodone - Quetiapine - Escitalopram - [...] Patient is working and volunteering at the [employer] to stay occupied. Plan: - Continue current counseling to address relationship issues and coping strategies - Encourage continued engagement in work and volunteer activities 03/15/2025 Other Aunalexandre Muñoz, female patient with a history of [...] Insured Coverage Start Date Coverage End Date Bcbs-Ks Ppo [address] [place] [address] [id number] BERKLEYLASHON BenitezCAOI Self - patient is the insured Medical (General) History Medical History History ICD Code Past Psychiatric History: An xiety Disorder,Panic Disorder,Major Depressive Episode,Bipolar Disorder Problems: Alcohol dependence Attention deficit hyperactivity disorder , predominantly inattentive type Bipolar affective disorder, current epis ode depression Generalized anxiety disorder
--- NOTE | 2025-09-02 14:07 | PC.NURSE ---
[place] poison control called back for update. Update given, states she will call back again to follow up.
[2025-09-02] MEDS: LACTATED RINGERS 1,000 ML 999 ML IV CONT (14:13)
--- NOTE | 2025-09-02 15:06 | WPCEDHO ---
ED Hand Off Checklist All vitals saved:yes IV Site documented:yes All med administrations documented:yes Triage Note Triage Note Pt to ED via EMS from home c/o 09/02/25 11:21 intentional overdose of lithium today around 1000. Pt reported she took her whole bottle of lithium, -90 150mg pills. Ems reports pt a&ox4 upon their arrival. Pt tearful upon arrival. Ems states pt found divorce papers at home when she arrived there. PD found a note at home. Hx of depression, anxiety. Pt denies any physical sx at this time. Allergies No Known Allergies Allergy (Verified 09/02/25 11:42) Family History (Last Reviewed 07/15/25 @ 15:23 by John Read MD) Father Alcoholism Hypertension Depression Mother Hypertension Depression Administered/Completed Medications Discontinued Medications Sodium Chloride (Normal Saline Iv) 1,000 mls @ 999 mls/hr IV CONT .Q1H1M STA Stop: 09/02/25 12:30 Last Infusion: 09/02/25 14:12 Dose: Infused Documented By: Admin: 09/02/25 11:58 Dose: 999 mls/hr Documented By: MLI Lactated Ringer's (Lr - Lactated Ringers Iv) 1,000 mls @ 999 mls/hr IV CONT .Q1H1M STA Stop: 09/02/25 13:36 Last Admin: 09/02/25 14:13 Dose: 999 mls/hr Documented By: KEIRY Notes 09/02/25 14:07 Nurse Note by Billie Torre [place] poison control called back for update. Update given, states she will call back again to follow up. Initialized on 09/02/25 14:07 - END OF NOTE 09/02/25 13:07 Nurse Note by Billie Torre Pt requested for family friend to called and updated on pt status of admission. Yamila called at [phone] Initialized on 09/02/25 13:07 - END OF NOTE 09/02/25 11:26 Nurse Note by Humberto Lenz spoke to [place] Poison Control High risk Overdose, increased risk for GI, Neuro and Cardiac concerns. If pt became obtunded, comatose, pt will need Hemo-Dialysis maybe suffer, Hypotension, EKG changes, N/V/D recommended medical clearance labs, [place] baseline level, then q4 FOR 24-48 HRS. Recommended IVF Initialized on 09/02/25 11:26 - END OF NOTE Interventions/Assessments IV / Saline Lock, Insert Start: 09/02/25 11:22 Freq: STAT Status: Active Protocol: Document 09/02/25 11:51 MLI (Rec: 09/02/25 11:54 MLI [id number]) IV Assessment Peripheral Access Left Antecubital IV Catheter Access Initiated IV Insertion Date 09/02/25 IV Insertion Time 11:51 Catheter Gauge 18 IV Insertion 1 Attempts Ultrasound Used for No Placement IV Site Assessment WNL IV Care and WNL Maintenance PA: Cardiovascular Assessment Start: 09/02/25 11:17 Freq: Status: Active Protocol: Document 09/02/25 11:51 MLI (Rec: 09/02/25 11:54 MLI [id number]) Cardiovascular Assessment Cardiovascular None Symptoms Skin Description Normal Color Heart Sounds Normal Jugular Vein None Distention PA: Respiratory Assessment Start: 09/02/25 11:17 Freq: Status: Active Protocol: Document 09/02/25 11:51 MLI (Rec: 09/02/25 11:54 MLI [id number]) Oxygen Delivery Oxygen Delivery Room Air Respiratory Assessment Symptoms None Effort Normal Pattern Regular Depth Normal Chest Expansion Symmetrical Adult Capillary Normal/Less than 2 Seconds Refill Cough Description None Last Vital Signs Temperature 98.3 F 09/02/25 11:21 Pulse Rate 80 09/02/25 13:30 Respiratory Rate 18 09/02/25 13:30 Pulse Oximetry 95 09/02/25 13:30 Blood Pressure 112/76 09/02/25 13:30 Blood Pressure Mean 87 09/02/25 13:30 Oxygen Delivery Room Air 09/02/25 11:51 Weight 102 kg 09/02/25 11:21 Last Result - Abnormals Only RBC 4.14 M/mm3 (4.2-5.4) L 09/02/25 11:35 Sodium 135 mmol/L (137-145) L 09/02/25 11:35 Total Protein 8.5 g/dL (6.3-8.2) H 09/02/25 11:35 Salicylates < 1.0 mg/dL (2-20) L 09/02/25 11:35 Acetaminophen < 10 ug/mL (10-30) L 09/02/25 11:35 Most Recent Suicide Severity Rating Suicide Severity Rating HIGH RISK 09/02/25 11:21
--- NOTE | 2025-09-02 15:29 | ADMGEN ---
This patient, Neva Muñoz, was admitted to Intensive Care Unit-6. Patient/family oriented to hospital policies and general routines including ID bracelet, bed and alarms, visiting hours, pain management, procedures, bathroom and other care routines, personal items, smoking policy, room service/diet, and visiting hours. Information on how to activate the Rapid Response Team has been discussed. Patient/Family are encouraged to report perceived risks to care and to ask questions if they do not understand what they are told or what they should do.
--- NOTE | 2025-09-02 16:07 | P.HP_ITS ---
H&P: HPI History of Present Illness Date/Time: 09/02/25 16:07 Chief Complaint: Intentional overdose Narrative: 35-year-old female with a past medical history of bipolar depression, anxiety, suicide attempt presents to the ED on 09/02/2025 after an intentional overdose on prescribed lithium. Patient reportedly found divorce papers at home when arriving at home. Reportedly took at least 80 of her 150mg [place] tablets. She had written a letter stating that she loved her family. Pt called her employer and said she wasn't going to work today. Police were Called for a welfare check. She reported her SI attempt to Police. EMS found patient to be A&O x4 and tearful. Two bottles of lithium 150 mg prescribed to patient were on the counter, both empty. Many pills were scattered across the counter. By EMS count of the found pills and patient interview , it was estimated the patient took at least 80 pills. patient moved from [place] just over 3 years ago. Has a family history of alcoholism. Patient has a history of self-harm and psychiatric hospitalizations in the past. Patient has documented history of alcohol abuse. On exam patient appears drowsy but A&O x4. vital signs stable. Initial vital signs 122/95, HR 84, respirations 20, afebrile and 95% room air Labs mostly unremarkable. Sodium 135. renal function intact. UA without signs of infection. HCG negative. UDS only significant for ethyl alcohol 287. [place] level 0.6. EKG with sinus rhythm and possible left atrial enlargement Review of Systems Review of Systems: All systems reviewed & are unremarkable except as noted in HPI and below PMFSH Past Medical History Medical History Localized swelling, mass and lump, right upper limb Depression with anxiety Family History Family History Father Alcoholism Hypertension Depression Mother Hypertension Depression Social History Social History Social History: Single Smoking status: Never smoker Second hand tobacco smoke exposure: No Alcohol intake: current Drinks per week: 56 Substance use: never Substance use type: does not use Last use: 09/02/25 Lack of Transportation: No Lack of Food: Never True Current Housing: I Have Housing Concerned About Future Housing: YES Difficulty Paying Gas/Electric Bills: No Difficulty Paying for Meds: No Currently Unemployed: No Education: High School Diploma/GED Difficulty w/ Childcare or Family Care: No Living arrangements: with family Occupation/Education: occupation Gender identity (if verbalized by the patient): Female Sexual Orientation (if Verbalized by the Patient): Straight or Heterosexual Spiritual care concerns: No Meds Home Medications and Allergies Home Medications ?Medication ?Instructions ?Recorded ?Confirmed ?Type escitalopram oxalate 10 mg tablet 10 mg PO DAILY 07/2409/02/25 History lithium carbonate 450 mg 450 mg PO DAILY 07/24/22 History tablet,extended release quetiapine 100 mg tablet 300 mg PO QHS 07/24/2209/02 History trazodone 50 mg tablet 50 mg PO QHS PRN sleep 11/0909/02/25 History levonorgestrel 0.15 mg-ethinyl See Rx Instructions .Ro ekwok 01/05/25 09/02/25 Rx estradiol 0.03 mg tablet (Altavera .COMPLEX #84 tabs (28)) Allergies Allergy/AdvReac Type Severity Reaction Status Date / Time No Known Allergies Allergy Verified 09/02/25 16:18 Vital Signs Vital Signs - 24 hr 09/02/25 11:21 09/02/25 11:38 09/02/25 11:51 Temperature 98.3 F Pulse Rate 84 86 Respiratory Rate 20 23 H 18 Blood Pressure 122/95 H Pulse Oximetry 95 95 Oxygen Delivery Room Air 09/02/25 11:51 09/02/25 12:01 09/02/25 12:01 Temperature Pulse Rate 89 89 Respiratory Rate 20 20 Blood Pressure 147/98 H 147/98 H Pulse Oximetry 94 94 Oxygen Delivery Room Air 09/02/25 12:31 09/02/25 13:01 09/02/25 13:30 Temperature Pulse Rate 89 87 80 Respiratory Rate 17 12 18 Blood Pressure 136/95 H 120/81 112/76 Pulse Oximetry 97 98 95 Oxygen Delivery 09/02/25 14:00 09/02/25 14:31 09/02/25 15:01 Temperature Pulse Rate 78 84 71 Respiratory Rate 16 17 15 Blood Pressure 106/73 106/70 94/54 L Pulse Oximetry 97 100 96 Oxygen Delivery 09/02/25 15:21 Temperature Pulse Rate 71 Respiratory Rate 16 Blood Pressure 105/70 Pulse Oximetry 96 Oxygen Delivery Exam Narrative: GENERAL: Withdrawn. HEAD: Normocephalic, atraumatic. EYES: Conjunctivae clear. NOSE: Normal no drainage. NECK: Trachea midline. No adenopathy, no masses. RESPIRATORY: Airway patent, respirations nonlabored. CTA. CARDIOVASCULAR: Regular rate and rhythm BREASTS: Defer GASTROINTESTINAL: Abdomen is soft and nontender. No organomegaly. Bowel sounds normal in all quadrants. GENITOURINARY: Defer MUSCULOSKELETAL: Moves all extremities. No gross deformities. SKIN: Warm, dry, normal color. NEURO: A&O X4. Speech clear PSYCHIATRIC: very withdrawn. Keeps eyes closed during conversation. Only answers a few questions. Results Labs Labs: Short CBC 09/02/25 Range/Units 11:35 WBC 7.4 (4.5-10.0) K/mm3 Hgb 13.5 (12.0-15.0) g/dL Hct 39.5 (37.0-47.0) % Plt Count 257 (150-375) k/mm3 BMP 09/02/25 11:35 Sodium 135 L Potassium 3.5 Chloride 100 Carbon Dioxide 24 BUN 12 D Creatinine 0.78 Glucose 101 Calcium 9.2 Liver Function 09/02/25 Range/Units 11:35 Total Bilirubin 0.4 (0.2-1.3) mg/dL AST 33 (14-36) U/L ALT 18 (6-35) U/L Alkaline Phosphatase 78 (38-126) U/L Albumin 4.7 (3.5-5.1) g/dL Urine 09/02/25 Range/Units 11:55 Urine Color Yellow (Yellow) Urine Appearance Clear (Clear) Urine pH 6.5 (5.0-9.0) Ur Specific [place] 1.003 (1.001-1.035) Urine Protein Negative (Negative) mg/dL Urine Glucose (UA) Negative (Negative) mg/dL Quality VTE Prophylaxis VTE prophylaxis: pharmacologic ordered Assessment and Plan Assessment and plan (1) Intentional lithium overdose: Qualifiers: Encounter type: initial encounter Qualified Code(s): T56.892A - Toxic effect of other metals, intentional self-harm, initial encounter Code(s): T56.892A - Toxic effect of other metals, intentional self-harm, initial encounter Status: Acute Assessment and Plan: Patient with history of suicidal ideation and suicide attempt with at least 1 inpatient psychiatric stay within the past 3 years. Patient reportedly took the head least 80 tablets of 150 mg lithium. [place] levels have been stable at 0.6-0 0.8-0.5. - s/p LR 1 L bolus and NS 1 L bolus - continue NS @ 125 - crisis intervention consult - poison control recommends repeat [place] level every 4-6 hrs for 24-48 hours, hydration - watch for the syndrome of irreversible lithium-effectuated neurotoxicity - Monitor QTc - trend renal function (2) ETOH abuse: Code(s): F10.10 - Alcohol abuse, uncomplicated Status: Chronic Assessment and Plan: patient difficult to engage and obtain exact number from. Appears to be roughly 56 drinks per week. - CIWA protocol in place - Ativan PRN - seizure precautions - neurochecks Q4H - IV fluids - care coordination consult (3) Depression with anxiety: Code(s): F41.8 - Other specified anxiety disorders Status: Chronic Assessment and Plan: continue Lexapro. Holding lithium, trazodone, and Seroquel due to apparent drowsiness. Prior Studies I have reviewed the following patient records and this information was taken into consideration when formulating the assessment and plan.: previous labs, previous ER visits, previous hospitalizations and previous clinic visits Time Spent with Patient Time with patient: 45 - 74 minutes Hospitalist [facility] Advance Care Plan I have confirmed that the patient's Advanced Care Plan is present, code status is documented, or surrogate decision maker is listed in patient medical record.: Yes Medication Reconciliation I have utilized all available resources to obtain, update and review the patients current medications (includes all prescriptions, OTC, herbals, cannabis, and nutritional supplements).: Yes
[2025-09-02] MEDS: SODIUM CHLORIDE 0.9% IV 1,000 ML 125 ML IV CONT (16:34)
[2025-09-02 17:01] LABS: Anion Gap 5 mmol/L (4-12); Blood Urea Nitrogen 10 mg/dL (7-17); Calcium 8.7 mg/dL (8.4-10.2); Carbon Dioxide 27 mmol/L (22-30); Chloride 111 mmol/L (98-107); Estimated CRCL calculation 115 ml/min; Estimated Glomerular Filt Rate > 60; Glucose 81 mg/dL (65-110); Potassium 4.3 mmol/L (3.4-5.0); Sodium 143 mmol/L (137-145)
[2025-09-02 17:02] LABS: Lithium 0.8 mmol/L (0.6-1.2)
[2025-09-02] MEDS: ONDANSETRON INJ 4 MG/2 ML VIAL IV PUSH (21:29)
[2025-09-02 22:22] LABS: Lithium 0.5 mmol/L (0.6-1.2)
[2025-09-02 22:25] LABS: Anion Gap 5 mmol/L (4-12); Blood Urea Nitrogen 7 mg/dL (7-17); Calcium 8.7 mg/dL (8.4-10.2); Carbon Dioxide 24 mmol/L (22-30); Chloride 108 mmol/L (98-107); Estimated CRCL calculation 131 ml/min; Estimated Glomerular Filt Rate > 60; Glucose 86 mg/dL (65-110); Potassium 3.8 mmol/L (3.4-5.0); Sodium 137 mmol/L (137-145)
[2025-09-03] VITALS: BP 150/87; PULSE 66; PULSE 69; RESP 21; TEMP 36.7; O2SAT 97
[2025-09-03] MEDS: SODIUM CHLORIDE 0.9% IV 1,000 ML 125 ML IV CONT ×2 (00:30→10:15)
[2025-09-03 02:00] VITALS: PULSE 80
--- NOTE | 2025-09-03 02:41 | PC.NURSE ---
This RN was notified that patients parents were in ED after driving up from [place]. This RN spoke with patient and patient said parents could come to the room. Parents spent time at bedside with patient. Patient tearful and anxious while discussing situation with parents.
[2025-09-03 04:00] VITALS: BP 120/73; PULSE 61; PULSE 97; RESP 25; TEMP 36.7; O2SAT 61
[2025-09-03 04:41] LABS: Hematocrit 37.1 % (37.0-47.0); Hemoglobin 12.4 g/dL (12.0-15.0); Immature Granulocyte Percent A 0.3 % (0-0.5); Lymphocytes Absolute Auto 2.28 K/mm3 (0.9-3.2); Mean Corpuscular HGB Conc 33.4 g/dl (32-36); Mean Corpuscular Hemoglobin 31.9 pg (26-34); Mean Corpuscular Volume 95.4 fl (80-100); Nucleated Red Blood Cells Absolute Auto 0.000 K/mm3 (0.0-0.012); Nucleated Red Blood Cells Perc 0.0 % (0.0-0.2); Platelet Count Result 244 k/mm3 (150-375); Red Blood Count 3.89 M/mm3 (4.2-5.4); White Blood Count 10.0 K/mm3 (4.5-10.0)
[2025-09-03 05:13] LABS: Alanine Aminotransferase 17 U/L (6-35); Albumin Level 3.8 g/dL (3.5-5.1); Alkaline Phosphatase 78 U/L (38-126); Anion Gap 7 mmol/L (4-12); Aspartate Amino Transferase 31 U/L (14-36); Bilirubin,Total 0.5 mg/dL (0.2-1.3); Blood Urea Nitrogen 8 mg/dL (7-17); Calcium 8.1 mg/dL (8.4-10.2); Carbon Dioxide 24 mmol/L (22-30); Chloride 105 mmol/L (98-107); Estimated CRCL calculation 126 ml/min; Estimated Glomerular Filt Rate > 60; Glucose 78 mg/dL (65-110); Magnesium 1.8 mg/dL (1.6-2.3); Potassium 3.9 mmol/L (3.4-5.0); Sodium 136 mmol/L (137-145); Total Protein 7.0 g/dL (6.3-8.2)
[2025-09-03 06:00] VITALS: PULSE 62
[2025-09-03 08:00] VITALS: BP 127/85; PULSE 62; RESP 20; TEMP 37.1; O2SAT 98
[2025-09-03] MEDS: THERAPEUTIC MULTIVITAMINS/MINERALS TAB (*BKC) 1 TABLET PO (09:02)
[2025-09-03] MEDS: LACTATED RINGERS 1,000 ML 999 ML IV CONT (09:02)
[2025-09-03] MEDS: ESCITALOPRAM OXALATE 10 MG TABLET PO (09:02)
[2025-09-03] MEDS: FOLIC ACID 1 MG TABLET PO (09:02)
[2025-09-03] MEDS: THIAMINE HCL 100 MG TABLET PO (09:02)
[2025-09-03 10:00] VITALS: PULSE 66
[2025-09-03 10:48] LABS: Anion Gap 6 mmol/L (4-12); Blood Urea Nitrogen 8 mg/dL (7-17); Calcium 8.6 mg/dL (8.4-10.2); Carbon Dioxide 23 mmol/L (22-30); Chloride 107 mmol/L (98-107); Estimated CRCL calculation 119 ml/min; Estimated Glomerular Filt Rate > 60; Glucose 120 mg/dL (65-110); Potassium 3.5 mmol/L (3.4-5.0); Sodium 136 mmol/L (137-145)
--- NOTE | 2025-09-03 12:55 | PM.IMPN2 ---
Assessment and Plan Assessment and Plan (1) Intentional lithium overdose: Qualifiers: Encounter type: initial encounter Qualified Code(s): T56.892A - Toxic effect of other metals, intentional self-harm, initial encounter Code(s): T56.892A - Toxic effect of other metals, intentional self-harm, initial encounter Status: Acute Assessment and Plan: Patient with history of suicidal ideation and suicide attempt with at least 1 inpatient psychiatric stay within the past 3 years. Patient reportedly took the head least 80 tablets of 150 mg lithium. [place] levels have been stable at 0.6-0 0.8-0.5. - s/p LR 1 L bolus and NS 1 L bolus - continue NS @ 125 - crisis intervention consult - poison control recommends repeat [place] level every 4-6 hrs for 24-48 hours, hydration - watch for the syndrome of irreversible lithium-effectuated neurotoxicity - Monitor QTc - trend renal function -additional IV fluid bolus was given this morning -poison control has signed off -patient is medically stable will have crisis management evaluate the patient (2) ETOH abuse: Code(s): F10.10 - Alcohol abuse, uncomplicated Status: Chronic Assessment and Plan: patient difficult to engage and obtain exact number from. Appears to be roughly 56 drinks per week. - CIWA protocol in place - Ativan PRN - seizure precautions - neurochecks Q4H - IV fluids -appreciate care coordination evaluation (3) Depression with anxiety: Code(s): F41.8 - Other specified anxiety disorders Status: Chronic Assessment and Plan: continue Lexapro. Holding lithium, trazodone, and Seroquel due to apparent drowsiness. Plan DVT prophylaxis: Lovenox Stress ulcer prophylaxis: Not indicated Nutrition: Regular diet with safety tray Code Status: Full code Patient will be made medical status Due to a high probability of clinically significant, life threatening deterioration, the patient required my highest level of preparedness to intervene emergently and I personally spent this critical care time directly and personally managing the patient. This critical care time included obtaining a history; examining the patient; pulse oximetry; ordering and review of studies; arranging urgent treatment with development of a management plan; evaluation of patient's response to treatment; frequent reassessment; and discussions with other providers. It was exclusive of separately billable procedures and treating other patients and teaching time. Please see Assessment and Plan section and the rest of the note for further information on patient assessment and treatment This dictation may have been done utilizing a voice recognition system. Attempts have been made to correct errors. However, there may be uncorrected grammatical, spelling, and recognitions errors present. Subjective Date/time seen: 09/03/25 12:55 Interval history: 09/02/2025: 35-year-old female with a past medical history of bipolar depression, anxiety, suicide attempt presents to the ED on 09/02/2025 after an intentional overdose on prescribed lithium. Patient reportedly found divorce papers at home when arriving at home. Reportedly took at least 80 of her 150mg [place] tablets. She had written a letter stating that she loved her family. Pt called her employer and said she wasn't going to work today. Police were Called for a welfare check. She reported her SI attempt to Police. EMS found patient to be A&O x4 and tearful. Two bottles of lithium 150 mg prescribed to patient were on the counter, both empty. Many pills were scattered across the counter. By EMS count of the found pills and patient interview , it was estimated the patient took at least 80 pills. patient moved from [place] just over 3 years ago. Has a family history of alcoholism. Patient has a history of self-harm and psychiatric hospitalizations in the past. Patient has documented history of alcohol abuse. 09/03/2025: Patient being seen for hospitalist group Patient seen examined the ICU for the hospitalist group, is awake, alert, depressed affect, answering all questions appropriately and moves all extremities. Denies any chest pain, shortness a breath, abdominal pain, nausea, vomiting. Patient has been afebrile, hemodynamically stable, urine output has been adequate. [place] level this morning 0.5. Patient remains on maintenance IV fluid Review of Systems Review of Systems: All systems reviewed & are unremarkable except as noted in HPI and below Exam Narrative: GENERAL: Withdrawn. HEAD: Normocephalic, atraumatic. EYES: Conjunctivae clear. NOSE: Normal no drainage. NECK: Trachea midline. No adenopathy, no masses. RESPIRATORY: Airway patent, respirations nonlabored. CTA. CARDIOVASCULAR: Regular rate and rhythm BREASTS: Defer GASTROINTESTINAL: Abdomen is soft and nontender. No organomegaly. Bowel sounds normal in all quadrants. GENITOURINARY: Defer MUSCULOSKELETAL: Moves all extremities. No gross deformities. SKIN: Warm, dry, normal color. NEURO: A&O X4. Speech clear PSYCHIATRIC: Depressed affect. Objective Data Vital Signs Vital Signs: Vital Signs - 24 hr 09/02/25 13:01 09/02/25 13:30 09/02/25 14:00 Temperature Pulse Rate 87 80 78 Respiratory Rate 12 18 16 Blood Pressure 120/81 112/76 106/73 Pulse Oximetry 98 95 97 Oxygen Delivery 09/02/25 14:31 09/02/25 15:01 09/02/25 15:21 Temperature Pulse Rate 84 71 71 Respiratory Rate 17 15 16 Blood Pressure 106/70 94/54 L 105/70 Pulse Oximetry 100 96 96 Oxygen Delivery 09/02/25 16:00 09/02/25 16:00 09/02/25 17:59 Temperature 98.7 F Pulse Rate 72 76 75 Respiratory Rate 17 Blood Pressure 102/72 Pulse Oximetry 94 Oxygen Delivery 09/02/25 20:00 09/02/25 20:00 09/02/25 20:00 Temperature 98.2 F Pulse Rate 63 65 Respiratory Rate 20 Blood Pressure 134/92 H Pulse Oximetry 94 Oxygen Delivery Room Air 09/02/25 22:00 09/03/25 00:00 09/03/25 00:00 Temperature 98.0 F Pulse Rate 71 69 Respiratory Rate 21 H Blood Pressure 150/87 H Pulse Oximetry 97 Oxygen Delivery Room Air 09/03/25 00:00 09/03/25 02:00 09/03/25 04:00 Temperature Pulse Rate 66 80 Respiratory Rate Blood Pressure Pulse Oximetry Oxygen Delivery Room Air 09/03/25 04:00 09/03/25 04:00 09/03/25 06:00 Temperature 98.1 F Pulse Rate 97 61 62 Respiratory Rate 25 H Blood Pressure 120/73 Pulse Oximetry 61 L Oxygen Delivery 09/03/25 08:00 09/03/25 08:00 09/03/25 10:00 Temperature 98.7 F Pulse Rate 62 62 66 Respiratory Rate 20 Blood Pressure 127/85 Pulse Oximetry 98 Oxygen Delivery Intake/Output Intake/Output: Intake & Output 08/31/25 09/01/25 09/02/25 09/03/25 23:59 23:59 23:59 23:59 Intake Total 1150 2411.7 Balance 1150 2411.7 Meds/Results Medications: Active Medications Generic Name Dose Route Start Last Admin Trade Name Freq PRN Reason Stop Dose Admin Enoxaparin Sodium 40 mg 09/02/25 21:00 09/02/25 20:05 Enoxaparin 40 Mg/0.4 Ml Syringe SUB-Q Not Given HS SHAUN Escitalopram Oxalate 10 mg 09/03/25 09:00 09/03/25 09:02 Escitalopram Oxalate 10 Mg Tablet PO 10 mg DAILY SHAUN Administration Folic Acid 1 mg 09/03/25 09:00 09/03/25 09:02 Folic Acid 1 Mg Tablet PO 1 mg DAILY SHAUN Administration Sodium Chloride 1,000 mls @ 125 mls/hr 09/02/25 13:55 09/03/25 10:15 Normal Saline Iv IV CONT 125 mls/hr .Q8H SHAUN Administration Lorazepam 2 mg 09/02/25 21:21 Lorazepam (*Crx) 1 Mg Tablet PO Q2H PRN CIWA>8, HR>100, or DBP>100 Multivitamins/Calcium 1 tablet 09/03/25 09:00 09/03/25 09:02 Therapeutic Multivitamins/Minerals Tab (*Bkc) PO 1 tablet DAILY SHAUN Administration Thiamine HCl 100 mg 09/03/25 09:00 09/03/25 09:02 Thiamine Hcl 100 Mg Tablet PO 100 mg DAILY SHAUN Administration Labs Labs: Laboratory Results - last 24 hr 09/02/25 09/02/25 09/03/25 16:41 22:08 00:32 WBC RBC Hgb Hct MCV MCH MCHC RDW Plt Count MPV Immature Gran % (Auto) Neut % (Auto) Lymph % (Auto) [place] % (Auto) Eos % (Auto) Baso % (Auto) Lymph # (Auto) [place] # (Auto) Eos # (Auto) Baso # (Auto) Abs Immat Gran (auto) Absolute Neuts (auto) Absolute Nucleated RBC Nucleated RBC % Sodium 143 137 Potassium 4.3 3.8 Chloride 111 H 108 H Carbon Dioxide 27 24 Anion Gap 5 5 BUN 10 7 Creatinine 0.73 0.63 L Estim Creat Clear Calc 115 131 Estimated GFR > 60 > 60 Glucose 81 86 POC Capillary Glucose 76 Calcium 8.7 8.7 Phosphorus Magnesium Total Bilirubin AST ALT Alkaline Phosphatase Total Protein Albumin [place] 0.8 0.5 L 09/03/25 09/03/25 09/03/25 04:12 10:17 12:03 WBC 10.0 RBC 3.89 L Hgb 12.4 Hct 37.1 MCV 95.4 MCH 31.9 MCHC 33.4 RDW 13.0 Plt Count 244 MPV 10.2 Immature Gran % (Auto) 0.3 Neut % (Auto) 71.3 Lymph % (Auto) 22.8 [place] % (Auto) 4.4 Eos % (Auto) 0.6 Baso % (Auto) 0.6 Lymph # (Auto) 2.28 [place] # (Auto) 0.4 Eos # (Auto) 0.1 Baso # (Auto) 0.1 Abs Immat Gran (auto) 0.03 Absolute Neuts (auto) 7.1 H Absolute Nucleated RBC 0.000 Nucleated RBC % 0.0 Sodium 136 L 136 L Potassium 3.9 3.5 Chloride 105 107 Carbon Dioxide 24 23 Anion Gap 7 6 BUN 8 8 Creatinine 0.66 L 0.70 Estim Creat Clear Calc 126 119 Estimated GFR > 60 > 60 Glucose 78 120 H POC Capillary Glucose 95 Calcium 8.1 L 8.6 Phosphorus 2.8 Magnesium 1.8 Total Bilirubin 0.5 AST 31 ALT 17 Alkaline Phosphatase 78 Total Protein 7.0 Albumin 3.8 [place] Quality VTE Prophylaxis VTE prophylaxis: pharmacologic ordered
--- NOTE | 2025-09-03 13:54 | P.DS_ITS ---
DS: Admitting Diagnosis Discharge Date 09/03/2025 Admitting Diagnosis Intentional [place] overdose DS: Discharge Diagnosis Discharge Diagnosis (1) Intentional lithium overdose: Qualifiers: Encounter type: initial encounter Qualified Code(s): T56.892A - Toxic effect of other metals, intentional self-harm, initial encounter Code(s): T56.892A - Toxic effect of other metals, intentional self-harm, initial encounter Status: Acute Assessment and Plan: Patient with history of suicidal ideation and suicide attempt with at least 1 inpatient psychiatric stay within the past 3 years. Patient reportedly took the head least 80 tablets of 150 mg lithium. [place] levels have been stable at 0.6-0 0.8-0.5. - s/p LR 1 L bolus and NS 1 L bolus - continue NS @ 125 - crisis intervention consult - poison control recommends repeat [place] level every 4-6 hrs for 24-48 hours, hydration - watch for the syndrome of irreversible lithium-effectuated neurotoxicity - Monitor QTc - trend renal function -additional IV fluid bolus was given this morning -poison control has signed off -patient is medically stable will have crisis management evaluate the patient (2) ETOH abuse: Code(s): F10.10 - Alcohol abuse, uncomplicated Status: Chronic Assessment and Plan: patient difficult to engage and obtain exact number from. Appears to be roughly 56 drinks per week. - CIWA protocol in place - Ativan PRN - seizure precautions - neurochecks Q4H - IV fluids -appreciate care coordination evaluation (3) Depression with anxiety: Code(s): F41.8 - Other specified anxiety disorders Status: Chronic Assessment and Plan: continue Lexapro. Holding lithium, trazodone, and Seroquel due to apparent drowsiness. Plan DVT prophylaxis: Lovenox Stress ulcer prophylaxis: Not indicated Nutrition: Regular diet with safety tray Code Status: Full code Patient will be made medical status Due to a high probability of clinically significant, life threatening deterioration, the patient required my highest level of preparedness to inter vene emergently and I personally spent this critical care time directly and personally managing the patient. This critical care time included obtaining a history; examining the patient; pulse oximetry; ordering and review of studies; arranging urgent treatment with development of a management plan; evaluation of patient's response to treatment; frequent reassessment; and discussions with other providers. It was exclusive of separately billable procedures and treating other patients and teaching time. Please see Assessment and Plan section and the rest of the note for further information on patient assessment and treatment This dictation may have been done utilizing a voice recognition system. Attempts have been made to correct errors. However, there may be uncorrected grammatical, spelling, and recognitions errors present. DS: Summary Hospital Course Hospital Course: 09/02/2025: 35-year-old female with a past medical history of bipolar depression, anxiety, suicide attempt presents to the ED on 09/02/2025 after an intentional overdose on prescribed lithium. Patient reportedly found divorce papers at home when arriving at home. Reportedly took at least 80 of her 150mg [place] tablets. She had written a letter stating that she loved her family. Pt called her employer and said she wasn't going to work today. Police were Called for a welfare check. She reported her SI attempt to Police. EMS found patient to be A&O x4 and tearful. Two bottles of lithium 150 mg prescribed to patient were on the counter, both empty. Many pills were scattered across the counter. By EMS count of the found pills and patient interview , it was estimated the patient took at least 80 pills. patient moved from [place] just over 3 years ago. Has a family history of alcoholism. Patient has a history of self-harm and psychiatric hospitalizations in the past. Patient has documented history of alcohol abuse. 09/03/2025: Patient being seen for hospitalist group Patient seen examined the ICU for the hospitalist group, is awake, alert, depressed affect, answering all questions appropriately and moves all extremities. Denies any chest pain, shortness a breath, abdominal pain, nausea, vomiting. Patient has been afebrile, hemodynamically stable, urine output has been adequate. [place] level this morning 0.5. Patient remains on maintenance IV fluid Status at Discharge Functional status at discharge: independent ambulation Overall status at discharge: patient is back to baseline Time Spent with Patient Time attestation: Total time spent providing and/or coordinating discharge services: Time spent: Less than 30 minutes Exam Narrative: GENERAL: Withdrawn. HEAD: Normocephalic, atraumatic. EYES: Conjunctivae clear. NOSE: Normal no drainage. NECK: Trachea midline. No adenopathy, no masses. RESPIRATORY: Airway patent, respirations nonlabored. CTA. CARDIOVASCULAR: Regular rate and rhythm BREASTS: Defer GASTROINTESTINAL: Abdomen is soft and nontender. No organomegaly. Bowel sounds normal in all quadrants. GENITOURINARY: Defer MUSCULOSKELETAL: Moves all extremities. No gross deformities. SKIN: Warm, dry, normal color. NEURO: A&O X4. Speech clear PSYCHIATRIC: Depressed affect. DS: Data Data Completed and Pending Labs on day of discharge: Labs from last 24 hours 09/03/25 09/03/25 09/03/25 12:03 10:17 04:12 WBC 10.0 RBC 3.89 L Hgb 12.4 Hct 37.1 MCV 95.4 MCH 31.9 MCHC 33.4 RDW 13.0 Plt Count 244 MPV 10.2 Immature Gran % (Auto) 0.3 Neut % (Auto) 71.3 Lymph % (Auto) 22.8 [place] % (Auto) 4.4 Eos % (Auto) 0.6 Baso % (Auto) 0.6 Lymph # (Auto) 2.28 [place] # (Auto) 0.4 Eos # (Auto) 0.1 Baso # (Auto) 0.1 Abs Immat Gran (auto) 0.03 Absolute Neuts (auto) 7.1 H Absolute Nucleated RBC 0.000 Nucleated RBC % 0.0 Sodium 136 L 136 L Potassium 3.5 3.9 Chloride 107 105 Carbon Dioxide 23 24 Anion Gap 6 7 BUN 8 8 Creatinine 0.70 0.66 L Estim Creat Clear Calc 119 126 Estimated GFR > 60 > 60 Glucose 120 H 78 POC Capillary Glucose 95 Calcium 8.6 8.1 L Phosphorus 2.8 Magnesium 1.8 Total Bilirubin 0.5 AST 31 ALT 17 Alkaline Phosphatase 78 Total Protein 7.0 Albumin 3.8 [place] 09/03/25 09/02/25 09/02/25 00:32 22:08 16:41 WBC RBC Hgb Hct MCV MCH MCHC RDW Plt Count MPV Immature Gran % (Auto) Neut % (Auto) Lymph % (Auto) [place] % (Auto) Eos % (Auto) Baso % (Auto) Lymph # (Auto) [place] # (Auto) Eos # (Auto) Baso # (Auto) Abs Immat Gran (auto) Absolute Neuts (auto) Absolute Nucleated RBC Nucleated RBC % Sodium 137 143 Potassium 3.8 4.3 Chloride 108 H 111 H Carbon Dioxide 24 27 Anion Gap 5 5 BUN 7 10 Creatinine 0.63 L 0.73 Estim Creat Clear Calc 131 115 Estimated GFR > 60 > 60 Glucose 86 81 POC Capillary Glucose 76 Calcium 8.7 8.7 Phosphorus Magnesium Total Bilirubin AST ALT Alkaline Phosphatase Total Protein Albumin [place] 0.5 L 0.8 Discharge Plan Discharge Attending physician on discharge: Alfredo Edouard Discharging Clinician: Alfredo Edouard Anticipated Discharge Date/Time: 09/03/25 13:49 Patient Disposition: Home Activity: may shower Diet: as tolerated and regular Discharge Instructions: Patient evaluated by crisis management, parents are from [place], will be taking the patient over there with them and get psych evaluation. Crisis management was okay for patient to be discharged on a contract. Patient Instructions: Antibiotic Form Patient Language: Danish Stand Alone Forms: General Discharge Information Follow-up/Referrals: eCcil Millan MD [Primary Care Provider, [facility]] Discharge Medications: Continued quetiapine 100 mg tablet 300 mg PO QHS escitalopram oxalate 10 mg tablet 10 mg PO DAILY trazodone 50 mg tablet 50 mg PO QHS PRN (Reason: sleep) levonorgestrel-ethinyl estrad [[place] (28)] 0.15-0.03 mg tablet See Rx Instructions .ROUTE .COMPLEX Qty: 84 1RF Dose Instruction: TAKE 1 TABLET BY MOUTH DAILY, FOLLOWING THE ORDER ON BLISTER CARD Rx Instructions: TAKE 1 TABLET BY MOUTH DAILY, FOLLOWING THE ORDER ON BLISTER CARD Discontinued lithium carbonate 450 mg tablet extended release 450 mg PO DAILY Patient Comments: 150 mg q AM, 300 mg q HS Date of admission: 09/02/25 13:52 Primary Care Provider: Cecil Millan Admitting Provider: Avery Bernstein Attending physician on admission: Avery Bernstein Condition: Stable Quality VTE Prophylaxis VTE prophylaxis: pharmacologic ordered
== END 2025-09-03 14:50 | disposition home or self-care (01) ==
LOC: ANHED 15:31 → ANHICU 09-03 12:00
PROVIDERS: Emergency Medicine; Nurse Practitioner Adult Health; Admitting Provider Internal Medicine; Emergency Provider Physician Assistant; PCP Family Medicine; Visit Provider Internal Medicine
DX: T56.892A Toxic effect of other metals, intentional self-harm, initial encounter (principal); F10.10 Alcohol abuse, uncomplicated; Y90.8 Blood alcohol level of 240 mg/100 ml or more; F41.8 Other specified anxiety disorders; F31.9 Bipolar disorder, unspecified; I45.10 Unspecified right bundle-branch block; R94.31 Abnormal electrocardiogram [ECG] [EKG]; Z79.3 Long term (current) use of hormonal contraceptives; Z91.51 Personal history of suicidal behavior; Z81.1 Family history of alcohol abuse and dependence; Z81.8 Family history of other mental and behavioral disorders
CPT/HCPCS: 36415; 80048; 80053; 80143; 80178; 80179; 80307; 81003; 81025; 82077; 82140; 82948; 83605; 83735; 84100; 84443; 85025; 85610; 85730; 93005; 96361; 96374; 99285; A9270; G0378; J2405; J7030; J7120